=== PATIENT | female | born 1950 | race Caucasian/White ===

== ENCOUNTER 2017-06-23 09:44 | Inpatient (IN) | payer OTHER ==
[~2017-06-23] VITALS: Ht 160 cm; Wt 94.3 kg
[~2017-06-23 09:44] MED LIST: LOPRESSOR25 PO
[2017-06-23 09:53] VITALS: BP 154/94
[2017-06-23 10:07] LABS: HEMATOCRIT 38.8 % (37.0-47.0); HEMOGLOBIN 13.4 gm/dL (12.0-15.0); MCH 32.4 pg (26.0-34.0); MCHC 34.5 g/dL (28.0-37.0); MCV 93.9 fL (80.0-100.0); MPV 7.8 fl. (7.2-11.1); NUCLEATED RBCS 0 /100WBC; PLATELET COUNT* 299 thou/uL (150-400); RBC 4.14 mil/uL (4.20-5.00); RDW-CV 12.6 % (10.5-14.5); WBC 13.4 thou/uL (4.0-11.0)
[2017-06-23 10:09] LABS: URINE BILIRUBIN NEGATIVE (Negative); URINE BLOOD TRACE (Negative); URINE CLARITY CLEAR; URINE COLOR YELLOW; URINE GLUCOSE-RANDOM NEGATIVE (Negative); URINE KETONES TRACE (Negative); URINE LEUKOCYTES-REFLEX NEGATIVE (Negative); URINE NITRITE-REFLEX NEGATIVE (Negative); URINE PROTEIN TRACE (Negative)
[2017-06-23 10:18] LABS: CALCIUM 8.9 mg/dL (8.5-10.1); CREATININE 0.8 mg/dL (0.6-1.3)
--- NOTE | 2017-06-23 10:20 | NUR ---
WILLARD NOTIFIED UPON PT RETURN FROM CT. PT WAS NOT CONNECTED TO MONITOR SHE WAS NOT CONNECTED PRIOR TO GOING TO CT
[2017-06-23 10:22] LABS: ALBUMIN 3.5 g/dL (3.4-5.0); TOTAL BILIRUBIN 1.2 mg/dL (<0.1-1.0); TOTAL PROTEIN 7.7 g/dL (6.4-8.2)
[2017-06-23 10:26] LABS: POTASSIUM 2.9 mmol/L (3.5-5.1)
[2017-06-23] MEDS ORDERED: LISINOPRIL-HCT1 EACH PO (11:58)
[2017-06-23 12:30] LABS: ABSOLUTE LYMPHOCYTES 0.5 thou/uL (0.8-5.3); ABSOLUTE MONOCYTES 0.5 thou/uL (0.0-1.2); ABSOLUTE NEUTROPHILS 12.3 thou/uL (1.6-8.1)
[2017-06-23 12:33] LABS: CLUMPED PLTS OCCASIONAL; PLATELET ESTIMATE ADEQUATE
[2017-06-23 12:34] LABS: MACROCYTES Occasional
[2017-06-23 13:56] VITALS: BP 135/79
[2017-06-23 14:55] VITALS: BP 141/81
[2017-06-23 16:00] VITALS: BP 140/90
--- NOTE | 2017-06-23 17:13 | NUR ---
PHYSICIAN CONTACTED DUE TO PT UNCONTROLLED PAIN EARLIER, PHYSICIAN CALLED AND STATED HE WOULD NOT BE GIVING ANY MORE MEDICATIONS FOR PAIN AT THIS TIME.
--- NOTE | 2017-06-23 18:51 | NUR ---
PT VSS AT THIS TIME. PT C/O HEADACHE, MEDS PROVIDED WITH NO RELIEF. PHYSICIAN NOTIFIED, BUT PHYSICIAN STATED THAT THEY WERE NOT GOING TO CHANGE HER PAIN MANAGEMENT AT THIS TIME. PT PROVIDED WITH ICE FOR PAIN CONTROL, LIGHTS TURNED OFF AND DOOR CLOSED FOR QUIET ENVIRONMENT. PT IV PLACEMENT IN LFA DUE TO PT FLUIDS BEEPING OFF SINCE OTHER ACCESS IS IN HER AC. PT RESTING AT THIS TIME.
[2017-06-23 20:00] VITALS: BP 132/75
[2017-06-23 23:10] LABS: AMP/METHAMP Negative (Negative); BARBITURATES Negative (Negative); BENZODIAZEPINES Negative (Negative); COCAINE Negative (Negative); METHADONE Negative (Negative); OPIATES Negative (Negative); PCP Negative (Negative); THC Negative (Negative)
[2017-06-24] VITALS (10 sets, daily range): BP systolic 90–132; BP diastolic 59–75
[2017-06-24 04:50] LABS: ABSOLUTE LYMPHOCYTES 0.8 thou/uL (0.8-5.3); ABSOLUTE MONOCYTES 1.2 thou/uL (0.0-1.2); ABSOLUTE NEUTROPHILS 13.7 thou/uL (1.6-8.1); BASOPHILS 0.3 %; HEMATOCRIT 35.5 % (37.0-47.0); MCH 32.1 pg (26.0-34.0); MCHC 33.7 g/dL (28.0-37.0); MCV 95.3 fL (80.0-100.0); MONOCYTES 7.6 %; MPV 8.2 fl. (7.2-11.1); NUCLEATED RBCS 0 /100WBC; PLATELET COUNT* 255 thou/uL (150-400); POLYS 87.1 %; RBC 3.72 mil/uL (4.20-5.00); RDW-CV 12.8 % (10.5-14.5); WBC 15.7 thou/uL (4.0-11.0)
[2017-06-24 05:06] LABS: CALCIUM 8.1 mg/dL (8.5-10.1); CREATININE 0.8 mg/dL (0.6-1.3)
[2017-06-24 05:09] LABS: POTASSIUM 4.1 mmol/L (3.5-5.1)
--- NOTE | 2017-06-24 05:14 | NUR ---
ASSESSMENT COMPLETE. PT GIVEN IV PAIN MEDICATION NEEDED. PT REPORTS IV TORADOL MORE EFFECTIVE AND FENTANYL CAUSING HEADACHES. PT GIVEN IV ZOFRAN FOR NAUSEA. PT IS NPO FOR POSSIBLE SURGERY. PT SLEPT PART OF THE NIGHT. PT IS ON ROOM AIR WITH ADEQUATE SATS. PT HAS IV FLUIDS INFUSING. PT UP STANDBY ASSIST TO BATHROOM. FALL RISK, BED ALARM ON. SEE ASSESSMENT AND VITALS FOR OTHER DETAILS. CALL LIGHT WITHIN REACH, WILL CONTINUE PLAN OF CARE
[2017-06-24 07:24] LABS: ALBUMIN 2.7 g/dL (3.4-5.0); DIRECT BILIRUBIN 0.4 mg/dL (<0.1-0.3); TOTAL BILIRUBIN 1.3 mg/dL (<0.1-1.0); TOTAL PROTEIN 5.8 g/dL (6.4-8.2)
--- NOTE | 2017-06-24 12:26 | NUR ---
SW met with pt to complete initial assessment, introduce self, and SW role. Pt alert and oriented. Pt mother bedside. Pt lives at home with her dtr and grandchildren. Pt said taht she plans to find a PCP and SW provided resource/referral list. Pt says that she will have Medicare August 10. Pt does not anticipate any other dc needs at this time. SW to follow.
--- NOTE | 2017-06-24 14:58 | EKG ---
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 : 1950 Requested By: Jovita Moreno Order Number: [id number] Liv MD: Moise Rowe Measurements Intervals [place] Rate: 97 P: 40 MA: 144 QRS: 12 QRSD: 89 T: 47 QT: 389 QTc: 494 Interpretive Statements Sinus rhythm Lw voltage, extremity leads Borderline prolonged QT interval Compared to ECG 09/03/2013 16:36:50 No significant changes Electronically Signed On 06-24-2017 14:58:22 CDT by Moise Rowe [email or web address] <ELECTRONICALLY SIGNED> By: Moise Rowe MD, [facility] 06/24/17 1458 1104 1104 Moise Rowe MD, [facility] /EPI
[2017-06-24 19:25] LABS: HEMATOCRIT 31.7 % (37.0-47.0); HEMOGLOBIN 10.9 gm/dL (12.0-15.0); MCH 32.3 pg (26.0-34.0); MCHC 34.2 g/dL (28.0-37.0); MCV 94.3 fL (80.0-100.0); MPV 7.9 fl. (7.2-11.1); NUCLEATED RBCS 0 /100WBC; PLATELET COUNT* 218 thou/uL (150-400); RBC 3.36 mil/uL (4.20-5.00); RDW-CV 12.7 % (10.5-14.5); WBC 11.2 thou/uL (4.0-11.0)
[2017-06-24 19:35] LABS: APTT 29.7 Seconds (25.0-31.3); INR 1.3; PROTIME 12.3 Seconds (9.20-11.50)
[2017-06-24 19:42] LABS: ABSOLUTE LYMPHOCYTES 0.3 thou/uL (0.8-5.3); ABSOLUTE MONOCYTES 0.3 thou/uL (0.0-1.2); ABSOLUTE NEUTROPHILS 10.5 thou/uL (1.6-8.1); PLATELET ESTIMATE ADEQUATE
--- NOTE | 2017-06-24 20:26 | NUR ---
PT ARRIVED TO ROOM ICU 2 VIA BED FROM PACU AT 1830. SEPSIS PROTOCOL INITIATED. VSS. PT ORIENTED TO ROOM. NO COMPLAINTS OF PAIN. WILL CONTINUE TO MONITOR.
[2017-06-25] VITALS (22 sets, daily range): BP systolic 87–149; BP diastolic 58–89
[2017-06-25 04:17] LABS: HEMOGLOBIN 10.3 gm/dL (12.0-15.0); MCH 32.6 pg (26.0-34.0); MCHC 34.5 g/dL (28.0-37.0); MCV 94.4 fL (80.0-100.0); MPV 7.9 fl. (7.2-11.1); RBC 3.17 mil/uL (4.20-5.00); RDW-CV 12.8 % (10.5-14.5); WBC 9.6 thou/uL (4.0-11.0)
[2017-06-25 04:42] LABS: CALCIUM 7.4 mg/dL (8.5-10.1); CREATININE 0.7 mg/dL (0.6-1.3); MAGNESIUM 1.7 mg/dL (1.8-2.4); POTASSIUM 3.5 mmol/L (3.5-5.1)
--- NOTE | 2017-06-25 05:37 | NUR ---
DR DAWN INFORMED OF TROPONIN OF 20.52, ORDER RECEIVED TO OBTAIN EKG THIS AM AND WILL START LOVENOX AND ASA THIS EVENING.
--- NOTE | 2017-06-25 06:19 | NUR ---
VSS, MAP HAS REMAINED >65. PT HAS DENIED CHEST PAIN AND SOA. INTERMITTENT ABDOMINAL PAIN TREATED WITH PRN PAIN MEDS ORDERED WITH RELIEF OF SYMPTOMS. PT HAS BEEN TURNED Q2HR THROUGHOUT THE SHIFT, REFUSED 0600 TURN AND EDUCATION PROVIDED. CALL LIGHT WITHIN REACH.
--- NOTE | 2017-06-25 06:31 | NUR ---
EKG OBTAINED, NO ACUTE CHANGES.
--- NOTE | 2017-06-25 10:00 | NUR ---
PT HAD JUAN CARLOS TUBE PLACED YESTERDAY, TRANSFERRED TO ICU WITH CARDIAC ISSUES. PT TO HAVE CARDIAC CATH TODAY. CASE MGT TO CONTINUE TO FOLLOW.
--- NOTE | 2017-06-25 11:36 | EKG ---
[place] [address] ELECTROCARDIOGRAM REPORT Name: INEZ SMITH Room: [address] ADM IN .R.#: [id number] Admission: 06/23/17 Attend Phys: Jignesh Jaramillo MD Discharge: Date of : 54 Report #: [id number] THIS REPORT FOR: //name// [facility] Test Date: 2017-06-24 Test Time: 17:03:39 Pat Name: INEZ SMITH Department: Room: [address] Gender: F Recruitment Assistant: KENDRA : 1950 Requested By: Diallo Rollins Order Number: [id number] Liv MD: Nick Starr Measurements Intervals [place] Rate: 127 P: 24 GA: 126 QRS: 47 QRSD: 95 T: 228 QT: 303 QTc: 441 Interpretive Statements Sinus tachycardia Atrial premature complex Borderline low voltage, extremity leads Borderline repolarization abnormality Compared to ECG 06/24/2017 11:04:07 Atrial premature complex(es) now present Sinus rhythm no longer present Electronically Signed On 06-25-2017 11:36:27 CDT by Nick Starr [email or web address] <ELECTRONICALLY SIGNED> By: Nick Starr MD, [facility] 06/25/17 1136 1703 1703 Nick Starr MD, [facility] /EPI
--- NOTE | 2017-06-25 11:39 | EKG ---
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 Practice Manager: Maurilio EVANS RN : 1950 Requested By: Dharmesh Watt Order Number: [id number] Reading MD: Nick Starr Measurements Intervals [place] Rate: 94 P: 38 DE: 162 QRS: 40 QRSD: 89 T: 9 QT: 430 QTc: 538 Interpretive Statements Sinus rhythm poor r wave progression Low voltage, extremity and precordial leads Prolonged QT interval Baseline wander in lead(s) V4 Compared to ECG 06/24/2017 11:04:07 rate has slowed Electronically Signed On 06-25-2017 11:39:09 CDT by Nick Starr [email or web address] <ELECTRONICALLY SIGNED> By: Nick Starr MD, [facility] 06/25/17 1139 0601 0601 Nick Starr MD, [facility] /EPI
--- NOTE | 2017-06-25 17:18 | 2DMMODE ---
[place] [address] 2 D/M-MODE ECHOCARDIOGRAM Name: INEZ SMITH Room: [address] IN [facility]#: [id number] Admission: 06/23/17 Attend Phys: Jignesh Jaramillo, Discharge: Date of : 54 Date of Service: 06/25/17 1718 Report #: [id number] THIS REPORT FOR: //name// ADDENDUM APPROVED REPORT Study performed: 06/25/2017 09:51:54 EXAM: Comprehensive 2D, Doppler, and color-flow Echocardiogram Patient Location: In-Patient Room #: [facility] Status: routine BSA: 1.85 HR: 88 bpm BP: 104/71 mmHg Rhythm: NSR Other Information Study Quality: Good Indications Arrhythmia 2D Dimensions IVSd: 10.69 (7-11mm) LVOT Diam: 17.61 (18-24mm) LVDd: 51.91 mm PWd: 8.57 (7-11mm) Ascending Ao: 33.96 (22-36mm) LVDs: 39.29 (25-40mm) Aortic Root: 29.84 mm Volumes Left Atrial Volume (Systole) LA ESV Index: 39.50 mL/m2 Aortic Valve AoV Peak Shalom.: 1.35 m/s AO Peak Gr.: 7.28 mmHg LVOT Max P.86 mmHg AO Mean Gr.: 3.96 mmHg LVOT Mean P.45 mmHg LVOT Max V: 1.10 m/s AO V2 VTI: 21.73 cm LVOT Mean V: 0.72 m/s DANNIE (VTI): 2.05 cm2 LVOT V1 VTI: 18.27 cm Mitral Valve E/A Ratio: 1.44 MV Decel. Time: 134.68 ms MV E Max Shalom.: 1.19 m/[place] [address] 2 D/M-MODE ECHOCARDIOGRAM Name: INEZ SMITH Room: [address] IN .R.#: [id number] Admission: 06/23/17 Attend Phys: Jignesh Jaramillo, Discharge: Date of : 54 Date of Service: 06/25/17 1718 Report #: [id number] MV PHT: 39.06 ms MVA (PHT): 5.63 cm2 TDI E/Lateral E': 10.82 E/Medial E': 9.15 Medial E' Shalom.: 0.13 m/s Lateral E' Shalom.: 0.11 m/s Pulmonary Valve PV Peak Shalom.: 0.77 m/s PV Peak Gr.: 2.39 mmHg Tricuspid Valve TR Peak Gr.: 28.31 mmHg RVSP: 33.00 mmHg Left Ventricle The left ventricle is normal size. severe hypokinesis noted of the distal anteroseptal wall and apex There is normal left ventricular wall thickness. Left ventricular systolic function is moderately decreased. LVEF is 4 LVEF is 35-40%. LVEF is 35-40%. Right Ventricle The right ventricle is normal size. The right ventricular systolic function is normal. Atria Left atrium is mildly dilated. The right atrium size is normal. Aortic Valve The aortic valve is normal in structure. No aortic regurgitation is present. There is no aortic valvular stenosis. Mitral Valve The mitral valve is normal in structure. Mild mitral regurgitation. No evidence of mitral valve stenosis. Tricuspid Valve The tricuspid valve is normal in structure. Mild tricuspid regurgitation. The RVSP is 30-35 mmHg. Pulmonic Valve Pulmonic valve is not well visualized. Mild pulmonic regurgitation. Great Vessels The aortic root is normal in size. [place] [address] 2 D/M-MODE ECHOCARDIOGRAM Name: INEZ SMITH Room: [address] IN [facility]#: [id number] Admission: 06/23/17 Attend Phys: Jignesh Jaramillo, Discharge: Date of : 54 Date of Service: 06/25/17 1718 Report #: [id number] visualized. Pericardium There is no pericardial effusion. <Conclusion> LVEF is 35-40%. severe hypokinesis noted of the distal anteroseptal wall and apex Left atrium is mildly dilated. Mild mitral regurgitation. Mild tricuspid regurgitation. The RVSP is 30-35 mmHg. <ELECTRONICALLY SIGNED> By: Nick Starr MD, [facility] 06/25/171717 17 17 Nick Starr MD, [facility] /INF
--- NOTE | 2017-06-25 17:51 | NUR ---
PT ARRIVED BACK FROM MICROBIOLOGY LAB ANALYST AT 1640. ASSESSMENT CHARTED. VSS. NO SIGNS OF BLEEDING OR HEMATOMA AT RIGHT RADIAL SITE. PT PROCEEDING WITH CAUTION WITH WATER AND HAS HAD AN ORDER FOR CLEAR LIQUIDS PUT IN PER SURGERY. PT'S PAIN CONTROLLED WELL WITH IV MEDICATION.
--- NOTE | 2017-06-25 18:22 | EKG ---
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: BJORN : 1950 Requested By: Nick Starr Order Number: [id number] Reading MD: Nick Starr Measurements Intervals [place] Rate: 97 P: 49 [place]: 168 QRS: 54 QRSD: 90 T: -16 QT: 419 QTc: 533 Interpretive Statements Sinus rhythm low voltage Anteroseptal infarct, age indeterminate Prolonged QT interval Compared to ECG 06/25/2017 06:01:01 Myocardial infarct finding now present Electronically Signed On 06-25-2017 18:22:18 CDT by Nick Starr [email or web address] <ELECTRONICALLY SIGNED> By: Nick Starr MD, [facility] 06/25/17 1822 1648 1648 Nick Starr MD, [facility] /EPI
--- NOTE | 2017-06-25 20:01 | CARD ---
[address] [address] CARDIAC CATH REPORT Name: INEZ SMITH [place] Room: [address] IN [facility]#: [id number] Admission: 06/23/17 Attend Phys: Jignesh Jaramillo MD Discharge: Date of : 54 Report #: [id number] THIS REPORT FOR: //name// APPROVED REPORT Study performed: 06/25/2017 14:20:54 Patient Details Patient Status: In-Patient Room #: The patient is a 66 year-old female Event Personnel Nick Starr Meat Trimmer, Juliann Card RN RN, Taj Major Monitor, Aye Roach RTR Scrub Procedures Performed cath pci Indication Abnormal ECG, Non-STEMI Risk Factors Arterial Hypertension Admission/Lab Medications/Medications given during procedure Platelet Aff. Inhib., Heparin Unfract. Procedure Narrative The patient was brought electively to the Cardiac Catheterization Laboratory and was prepped and draped in a sterile manner. The right wrist was infiltrated with 1% Lidocaine subcutaneous anesthesia. A Slender Glidesheath sheath was inserted into the right radial artery. Coronary angiography was performed using coronary diagnostic catheters. The right coronary system was accessed and visualized with a JR4 5fr catheter. The left coronary system was accessed and visualized with a JL 3.5 5fr catheter. The left ventricle was accessed and visualized with a PC: Angled Pig 5fr catheter. Left ventricular/Aortic Valve gradient assessed via catheter pullback. Left ventriculogram was performed in DENNY projection. Closure device was deployed with a 6 Fr Vasc-Band Reg 24cm. The patient tolerated the procedure well and there were no complications associated with the procedure. There was no hematoma. Intraoperative Conscious Sedation Sedation start time: 1507 Case end Time: [place] [address] CARDIAC CATH REPORT Name: SARAHINEZ L Room: [address] IN [facility]#: [id number] Admission: 06/23/17 Attend Phys: Jignesh Jaramillo MD Discharge: Date of : 54 Report #: [id number] Versed 2 mg Fluoro Time: 6.9 minutes Dose: DAP [id number] cGycm2 1643 mGy Contrast Type and Amount: Omnipaque 145 ml Coronary Angiography The patient's coronary anatomy is right dominant. [place] Artery Percent Stenosis The vessels were moderately calcified. Diagnostic Cath Left Main 0% stenosis LAD 80% proximal and 60% after the first diagonal. There was a 60% distal stenosis Circumflex 50% mid stenosis Right Coronary proximally occluded with slow antegrade flow, and collateral flow from the left coronary artery. Ramus 0% stenosis Left Ventriculography The left ventricle is mildly dilated in size with abnormal contactility contractility. The left ventricular ejection fraction is estimated to be 35-40%. Left ventricular wall motion abnormalities are present. There is 1+ mitral insufficiency. Severe moderate hypokinesis noted of the inferior wall and apex. Hemodynamics The aortic pressure is 126/85 mmHg with a mean of 104 mmHg. The left ventricular pressure is 142/4 mmHg with a mean of mmHg. The left ventricular end diastolic pressure is 20 mmHg. There was no gradient across the aortic valve upon pullback. Pullback from the left ventricle to the aorta revealed no gradient across the aortic valve. PCI Technique Lesion Anticoagulation was achieved with Heparin. bolus of iv aggrastat given Patient was preloaded with Plavix 600 mg. Percutaneous coronary intervention was performed on the mid left anterior descending artery segment. The lesion stenosis prior to intervention was 80% with JANIE 3 flow. A 6FR XB LAD 3.0 100CM Guide Catheter was used to engage the lm ostium. A IG: BMW 190cm Interventional Guidewire [place] [address] CARDIAC CATH REPORT Name: INEZ SMITH Room: [address]#: [id number] Admission: 06/23/17 Attend Phys: Jignesh Jaramillo MD Discharge: Date of : 54 Report #: [id number] BALLOON DILATION A Balloon catheter Trek RX 2.5 X 12 was inserted and inflated up to 12.00atm for 12seconds. Repeat angiography revealed the following post-dilatation results: 40% stenoisis. Additional Inflation: 14.00atm for 11seconds. STENT DEPLOYMENT A bare metal stent Vision RX 2.75 X 18 was inserted and inflated up to 7.00atm for 24seconds. Repeat angiography revealed the following post-stent deployment results: 30% stenosis. Additional Inflation: 12.00atm for 19seconds. Additional Inflation: 13.00atm for 12seconds. POST STENT DEPLOYMENT BALLOON DILATION A Balloon catheter NC Trek RX 3.0 X 12 was inserted and inflated up to 18.00atm for 33seconds. Repeat angiography revealed the following post-dilatation results: 0% stent stenosis, but a step down from the proximal lad. Additional Inflation: 20.00atm for 15seconds. Final angiography reveals 0 % stenosis with JANIE 3 flow. Conclusion 1. Chronic occlusion of the rca, and 80% stenosis of the mid lad 2. successful placement of a single bare metal stent in the mid lad 3. moderate LV dysfunction Recommendations Cardiac Rehabilitation Referral Aggressive Medical Therapy Medications Administered Ticagrelor <ELECTRONICALLY SIGNED> By: Nick Starr MD, [facility] 06/25/172000 00 00Dadanny Starr MD, FAC /INF
[2017-06-26 02:00] VITALS: BP 89/60
[2017-06-26 03:04] LABS: ABSOLUTE EOSINOPHILS 0.1 thou/uL (0.0-0.7); ABSOLUTE LYMPHOCYTES 0.9 thou/uL (0.8-5.3); ABSOLUTE MONOCYTES 0.5 thou/uL (0.0-1.2); ABSOLUTE NEUTROPHILS 6.3 thou/uL (1.6-8.1); BASOPHILS 0.3 %; EOSINOPHILS 0.7 %; HEMOGLOBIN 10.6 gm/dL (12.0-15.0); LYMPHOCYTES 11.1 %; MCH 32.6 pg (26.0-34.0); MCHC 34.1 g/dL (28.0-37.0); MCV 95.7 fL (80.0-100.0); MONOCYTES 6.9 %; MPV 7.9 fl. (7.2-11.1); NUCLEATED RBCS 0 /100WBC; PLATELET COUNT* 227 thou/uL (150-400); RBC 3.24 mil/uL (4.20-5.00); RDW-CV 13.2 % (10.5-14.5); WBC 7.7 thou/uL (4.0-11.0)
[2017-06-26 03:30] LABS: ALBUMIN 1.8 g/dL (3.4-5.0); ALKALINE PHOSPHATASE 50 U/L (46-116); ANION GAP 13 mmol/L (7-16); BUN 17 mg/dL (7-18); CALCIUM 7.3 mg/dL (8.5-10.1); CHLORIDE 107 mmol/L (98-107); CHOLESTEROL 117 mg/dL (<200); CO2 20 mmol/L (21-32); CREATININE 0.7 mg/dL (0.6-1.3); GLUCOSE 120 mg/dL (70-99); HDL CHOLESTEROL 7 mg/dL (>40); LDL CHOLESTEROL 62 mg/dL (<100); POTASSIUM 3.2 mmol/L (3.5-5.1); SERUM ASSESSMENT Clear; SGOT 57 U/L (15-37); SGPT 26 U/L (30-65); SODIUM 140 mmol/L (136-145); TC:HDL 16.7 Ratio (Not establshd); TOTAL BILIRUBIN 0.4 mg/dL (<0.1-1.0); TOTAL PROTEIN 5.6 g/dL (6.4-8.2); TRIGLYCERIDE 240 mg/dL (<150); VLDL 48 mg/dL (<40)
[2017-06-26 03:32] LABS: TROPONIN-I LEVEL 14.43 ng/mL (<0.06)
[2017-06-26 04:00] VITALS: BP 112/73
[2017-06-26 06:00] VITALS: BP 127/79
--- NOTE | 2017-06-26 07:26 | NUR ---
HR CHANGED FROM ST TO AFIB RVR; DR DE LEON NOTIFIED, PT PLACED ON AMIO DRIP. K REPLACED PO X2 DOSES FOR LEVEL 3.2. OLENA DRAIN PATENT, NO OUTPUT FROM FELIPE DRAIN. INCISIONS INTACT. PT REMAINS A+O*4, VARGAS PATENT, ADEQUATE OUTPUT. IVF @ 125, ABX AROUND THE CLOCK. CONT TO MONITOR
[2017-06-26 07:42] VITALS: BP 121/73
--- NOTE | 2017-06-26 09:37 | NUR ---
RECEIVED REPORT FROM STEPHANIE HOOVER. ASSESSMENT CHARTED. AFEBRILE. SAM TAKEN OUT THIS AM. PT NOW TELE STATUS. WILL CONTINUE TO MONITOR.
--- NOTE | 2017-06-26 13:40 | EKG ---
[place] [address] ELECTROCARDIOGRAM REPORT Name: INEZ SMITH Room: [address] ADM IN .R.#: [id number] Admission: 06/23/17 Attend Phys: Jignesh Jaramillo MD Discharge: Date of : 54 Report #: [id number] THIS REPORT FOR: //name// [facility] Test Date: 2017-06-25 Test Time: 22:49:56 Pat Name: INEZ SMITH Department: Room: [address] Gender: F Repair Service Dispatcher: [facility] : 1950 Requested By: Jignesh Jaramillo Order Number: [id number] Reading MD: Nick Starr Measurements Intervals [place] Rate: 130 P: AK: QRS: 74 QRSD: 93 T: -67 QT: 303 QTc: 446 Interpretive Statements Atrial fibrillation Low voltage, precordial leads Anteroseptal infarct, old Minimal ST depression Compared to ECG 06/25/2017 16:48:15 Sinus rhythm no longer present Prolonged QT interval no longer present Myocardial infarct finding still present Electronically Signed On 06-26-2017 13:40:36 CDT by Nick Starr [email or web address] <ELECTRONICALLY SIGNED> By: Nick Starr MD, [facility] 06/26/17 1340 2249 2249 Nick Starr MD, [facility] /EPI
--- NOTE | 2017-06-26 13:46 | EKG ---
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 : 1950 Requested By: Nick Starr Order Number: [id number] Liv MD: Nick Starr Measurements Intervals [place] Rate: 92 P: 41 [place]: 158 QRS: 37 QRSD: 104 T: -15 QT: 408 QTc: 505 Interpretive Statements Sinus rhythm low voltage Anterior infarct, age indeterminate Prolonged QT interval Compared to ECG 06/25/2017 16:48:15 sinus rhythm noted Electronically Signed On 06-26-2017 13:46:09 CDT by Nick Starr [email or web address] <ELECTRONICALLY SIGNED> By: Nick Starr MD, [facility] 06/26/17 1346 0736 0736 Nick Starr MD, [facility] /EPI
[2017-06-26 14:35] VITALS: BP 121/73
[2017-06-26 16:24] VITALS: BP 118/85
--- NOTE | 2017-06-26 20:15 | NUR ---
PT TRANSFERED FROM ICU PT IS ALERT AND ORIENTED X 4 PT IS UP WTIH SBA PT HAS FALLEN RECENTLY PT IS A FALL RISK BED ALARM IS ON, PT C/O PAIN GAVE PAIN MEDS WHICH HELPED PT, PT DENEIS SOA ON RA, PT GIVEN ANTIBIOTICS, PT IS SR ON THE MONITOR, PT HAS FLUIDS RUNNING, WILL CONTINUE TO MONITOR
[2017-06-27] VITALS (7 sets, daily range): BP systolic 120–159; BP diastolic 73–104
[2017-06-27 04:50] LABS: ABSOLUTE EOSINOPHILS 0.1 thou/uL (0.0-0.7); ABSOLUTE LYMPHOCYTES 0.8 thou/uL (0.8-5.3); ABSOLUTE MONOCYTES 0.4 thou/uL (0.0-1.2); ABSOLUTE NEUTROPHILS 4.8 thou/uL (1.6-8.1); BASOPHILS 0.4 %; EOSINOPHILS 1.6 %; HEMATOCRIT 28.5 % (37.0-47.0); HEMOGLOBIN 9.9 gm/dL (12.0-15.0); LYMPHOCYTES 13.4 %; MCHC 34.8 g/dL (28.0-37.0); MCV 94.6 fL (80.0-100.0); MPV 7.7 fl. (7.2-11.1); NUCLEATED RBCS 0 /100WBC; PLATELET COUNT* 235 thou/uL (150-400); POLYS 77.6 %; RBC 3.01 mil/uL (4.20-5.00); WBC 6.2 thou/uL (4.0-11.0)
[2017-06-27 05:06] LABS: CALCIUM 7.8 mg/dL (8.5-10.1); CREATININE 0.8 mg/dL (0.6-1.3); POTASSIUM 3.6 mmol/L (3.5-5.1)
--- NOTE | 2017-06-27 05:59 | NUR ---
ASSUMED PT CARE AT 19;15 REPORT RECEIVED FORM NURSE PT IS ALERT AWAKE ORIENTED X4 VITAL SIGNS WITHIN NORMAL LIMIT. IV LINIE IN R HAND PATENT. IV IN L HAND BLEW OUT . IV FLUID INFUSING. ANTIBIOTICS ADMINSTERED. SINUS RYTHM ON THE MONITOR. PT COMPLAIN OF PAIN LEVEL OF 5 IN RIGHT UPPER ABD. NARCO ADMINISTERED ORDERED. 2 HOURS AFTER, PT IS SLEEPING INBED. GOT UP X2 TO USE THE BEDSIDE COMMODE AND URINATES GOOD AMOUNT OF URIME POST CATHETER REMOVAL. RIGHT UPPER QUADRANT FELIPE DRAINAGE IS EMPTY. NO OUTPUT. BILLIAR OUTPUT FROM OTHER DRAINAGE.
--- NOTE | 2017-06-27 15:14 | NUR ---
CONTINUE TO FOLLOW, ATTEMPTED TO MEET WITH PT SEVERAL TIMES TODAY BUT HAVING ISSUES WITH AFIB. MET WITH DTR/FERMIN IN MEEKS. UPDATED HER ON PLAN FOR DC WITH JUAN CARLOS TUBE AND THAT CM ASKED THAT NURSING INSTRUCT PT AND DTR ON CARE OF. PT IS UNINSURED, PER DTR, WILL HAVE MEDICARE 08/10. EXPLAINED THAT CM IS NOT ABLE TO SET UP ANY HH OR CARE UNTIL MEDICARE IS ACTIVE UNLESS PT WANTS TO PAY OUT OF POCKET. SHE STATED SHE UNDERSTOOD. PLAN WILL BE FOR PT TO RETURN HOME WITH DTR. FERMIN STATED PT CAN BORROW A WALKER FROM HER AUNT. WILL FOLLOW
--- NOTE | 2017-06-27 16:20 | NUR ---
ASSUMED PT CARE AT 0700 PT IS ALERT AND ORIENTED X 4 PT C/O PAIN GAVE PAIN MEDS REASSESSED PT STATES PAIN MEDS HELP, PT IS UP WITH SBA TO COMMODE PT IS A FALL RISK BED ALARM IS ON, PT IS SR ON THE MONITOR, AROUND 1400 PT HEART RATE INCREASED PT BECAME TACHY OBTAINED EKG CALLED CARDIOLOGY WITH RESULTS OBTAINED ORDER FOR AMIODARONE BOLUS WHICH THIS NURSE GAVE PT HEART RATE DECREASED PT WAS ASYMPTOMATIC DURING EPISODE, SURGERY ORDERED TO STOP FLUIDS, PT TOLERATED FULL LIQUIDS WILL ADVANCE TOLERATED, WILL CONTINUE TO MONITOR
[2017-06-28] VITALS (7 sets, daily range): BP systolic 121–145; BP diastolic 73–99
--- NOTE | 2017-06-28 02:00 | NUR ---
ASSUMED CARE OF PATIENT AT 1900 THE PATIENT REMAINS IN AFIB ON THE MONITOR REPORTEDLY FLUCTUATES BETWEEN SR,ST ET AFIB BY OFF-GOING RN O2 SAT MAINTAINED ON RA CONTINUES TO BE UP WITH STANDBY MODERATE ASSIST OF 1 TO THE BSC SX MANAGEMENT CONTINUE FOR PAIN WITHOUT S/SX OF ACUTE DISTRESS AT SHIFT START DRAINS X 2 RUQ REMAIN INTACT WITHOUT NOTED CONCERNS SAFETY INTERVENTIONS CONTINUE BED LOWERED WHEELS LOCKED CALL LIGHT IN REACH SIDE RAILS UP X 2 WILL CONTINUE TO MONITOR
--- NOTE | 2017-06-28 07:11 | NUR ---
PATIENT SEEN BY SURGERY THIS AM WITH NO NEW ORDERS OBTAINED THE PATIENT RESTED WELL DURING NIGHT OCCASIONAL TACHY WORSENING WITH MOVEMENT HOWEVER RESOLVING PRESENTLY 85 HR DRAINS REMAIN INTACT DENIES PAIN WHEN QUESTIONED NO PRN INTERVENTIONS UTILIZED THIS SHIFT AM LABS UNABLE TO BE OBTAINED DUE TO POOR ACCESS LIMB ALERT STILL PRESENT ON RIGHT WRIST REPORT TO BE GIVEN TO ONCOMING RN
[2017-06-28 09:23] LABS: HEMATOCRIT 34.4 % (37.0-47.0); MCH 32.7 pg (26.0-34.0); MCHC 34.9 g/dL (28.0-37.0); MCV 93.7 fL (80.0-100.0); MPV 7.9 fl. (7.2-11.1); RBC 3.67 mil/uL (4.20-5.00); RDW-CV 12.9 % (10.5-14.5); WBC 5.2 thou/uL (4.0-11.0)
[2017-06-28 09:24] LABS: CALCIUM 8.2 mg/dL (8.5-10.1); CREATININE 0.7 mg/dL (0.6-1.3); MAGNESIUM 1.8 mg/dL (1.8-2.4); PHOSPHORUS* 3.2 mg/dL (2.5-4.9); POTASSIUM 3.5 mmol/L (3.5-5.1)
--- NOTE | 2017-06-28 11:27 | EKG ---
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 : 1950 Requested By: Jignesh Jaramillo Order Number: [id number] Reading MD: Nick Starr Measurements Intervals [place] Rate: 140 P: MA: QRS: 96 QRSD: 93 T: -62 QT: 290 QTc: 443 Interpretive Statements Atrial fibrillation Right axis deviation Low voltage, precordial leads Anteroseptal infarct, old Borderline T abnormalities, inferior leads Compared to ECG 06/26/2017 07:36:03 Right-axis deviation now present Sinus rhythm no longer present Prolonged QT interval no longer present Myocardial infarct finding still present Electronically Signed On 06-28-2017 11:27:14 CDT by Nick Starr [email or web address] <ELECTRONICALLY SIGNED> By: Nick Starr MD, [facility] 06/28/17 1127 1319 1319 Nick Starr MD, [facility] /EPI
--- NOTE | 2017-06-28 17:57 | NUR ---
PT C/O PAIN IN FEET AND SWELLING. PT GIVEN PAIN MED PER ORDERS AND FEET ELEVATED WITH RELIEF REPORTED ON REASSESSMENT. PT OOB MOST OF DAY, WALKS TO BATHROOM WITH WALKER, SBA, STEADY GAIT. PT TOLERATES DIET WITHOUT C/O. DRAINS IN PLACE. SEROSAGUINOUS DRAINAGE IN FELIPE DRAIN, GREEN DRAINAGE BILIARY DRAIN. PT ABLE TO MAKE NEEDS KNOWN, CALL LIGHT IN REACH
[2017-06-29] VITALS: BP 123/78
[2017-06-29 04:00] VITALS: BP 126/73
--- NOTE | 2017-06-29 04:48 | NUR ---
ASSUMED CARE OF PATIENT AT 1900 THE PATIENT REMAINS SR ON THE MONITOR O2 SAT MAINTAINED ON CONTINUES TO BE UP WITH ASSIST OF 1 ET WALKER TO BSC THE ROUTINE REGIMEN CONTINUES TO BE EFFECTIVE FOR SX MANAGEMENT PRN PAIN MED X 1 THIS SHIFT SAFETY INTERVENTIONS CONTINUE BED LOWERED WHEELS LOCKED CALL LIGHT IN REACH SIDE RAILS UP REPORT TO BE GIVEN TO ONCBENNIE BROWN
[2017-06-29 05:39] LABS: CALCIUM 7.9 mg/dL (8.5-10.1); CREATININE 0.7 mg/dL (0.6-1.3); MAGNESIUM 1.8 mg/dL (1.8-2.4); POTASSIUM 3.6 mmol/L (3.5-5.1)
[2017-06-29 07:00] VITALS: BP 133/91
--- NOTE | 2017-06-29 07:04 | NUR ---
ORDER RECEIVED MAY LEAVE IV OUT POTENTIAL DISCHARGE, POOR ACCESS, ORDERS TO CHANGE FLAGYL TO PO OBTAINED ALTERATION TO BEGIN THIS AM REPORT TO BE GIVEN TO ONCOMING RN
[2017-06-29 09:58] VITALS: BP 133/91
[2017-06-29] MEDS ORDERED: PACERONE 200 M200 M1 PO (11:03)
[2017-06-29] MEDS ORDERED: ASPIR 8181 MG PO (11:03)
[2017-06-29] MEDS ORDERED: PLAVIX 75 MG TA75 M1 PO (11:03)
[2017-06-29] MEDS ORDERED: FLAGYL500 MG PO (11:03)
[2017-06-29] MEDS ORDERED: CIPRO500 M1 PO (11:03)
[2017-06-29] MEDS ORDERED: LANOXIN 0.25M0.25 M1 PO (11:03)
[2017-06-29] MEDS ORDERED: LIPITOR40 MG PO (11:03)
[2017-06-29] MEDS ORDERED: NITROGLYCERIN0.4 MG SUBLING (13:57)
[2017-06-29] MEDS ORDERED: HYDROCODONE-AP1 EAC6 PO (13:59)
--- NOTE | 2017-06-29 14:23 | NUR ---
VSS, ASSUMED CARE IN THE AM, ASSESSMENT PERFORMED AND CHARTED, FALL PRECAUTIONS IN PLACE AND CALL LIGHT IN REACH, PT IS A&O4 AND UP WITH ONE AND WALKER, PT IS ON RA AND STATES PAIN IN HER ABDOMINE, PT IS TRACING SR ON THE MONITOR AND IS ON RA, AT THIS TIME I HAVE RECIEVED D/C INSTRUCTIUONS FILLED OUT D/C MEDICATIONS AND PROVITED SCRIPTS AND MEDICATIONS INFO SHEETS, PT IV AND TELE MONITOR TAKEN OUT AND PT WAS EDUCATED ON HOW TO USE JUAN CARLOS TUBE AND FELIPE DRAIN, PT DENIES ANY QUESTIONS OR CONCERNS AT TIME OF D/C. HOURLY ROUNDS COMPLETED AND WILL FOLLOW WITH PLAN OF CARE.
--- NOTE | 2017-06-30 08:44 | CON ---
[address] [address] CONSULTATION Name: INEZ SMITH Room: [address] IN .R#: [id number] Admission: 06/23/17 Attend Phys: Jignesh Jaramillo MD Discharge: 06/29/17 Date of : 54 Report #: [id number] THIS REPORT FOR: //name// CC: Jignesh Jaramillo [facility] physician/PCP DATE OF SERVICE: 06/24/2017 INDICATION: Ventricular tachycardia. HISTORY OF PRESENT ILLNESS: The patient is a very pleasant 66-year-old white female who was admitted through the Emergency Room yesterday with abdominal pain. She was found to have acute cholecystitis. She was in the operating room today undergoing laparoscopic procedure. She was found to have a rather infected gallbladder, for which she had a percutaneous tube placed. In the process of reversing anesthesia, she had an episode described as ventricular tachycardia and supraventricular tachycardia. This has settled down. The patient has orders for an amiodarone bolus and drip pending. At this time, she remains in sinus tachycardia, but is hemodynamically stable. She is alert. She denies any chest pain. She is not having shortness of breath. She states she had been having abdominal pain for approximately a week prior to presenting to the hospital. Cardiac risk factors are significant only for hypertension. She is a lifelong nonsmoker. Lipid status is unknown. There is no family history of coronary disease. She is not diabetic. PAST MEDICAL HISTORY: 1. Hypertension. 2. Nephrolithiasis. 3. History of migraines. PAST SURGICAL HISTORY: 1. Gastric bypass. 2. Left breast biopsy. 3. Left hip replacement. 4. Knee replacement. 5. Bladder lift. FAMILY HISTORY: Noncontributory. SOCIAL HISTORY: The patient is a lifelong nonsmoker. She does not drink alcohol. ALLERGIES: CEPHALEXIN [place] [address] CONSULTATION Name: INEZ SMITH Sabine Room: [address]#: [id number] Admission: 06/23/17 Attend Phys: Jignesh Jaramillo MD Discharge: 06/29/17 Date of : 54 Report #: [id number] CURRENT MEDICATIONS: Metoprolol tartrate 25 mg daily and lisinopril/hydrochlorothiazide 10/12.5 mg 1 tablet p.o. daily. PHYSICAL EXAMINATION: VITAL SIGNS: Blood pressure 113/86, pulse 125 and regular. Telemetry shows sinus tachycardia. GENERAL: Morbidly obese white female, who is not in distress. HEENT: Head is normocephalic, atraumatic. Pupils equally round, reactive to light. Extraocular muscles intact. NECK: Shows a thick neck without obvious jugular venous distention. CHEST: Clear anteriorly. CARDIOVASCULAR: Reveals a tachycardic rhythm that is regular without gallop or murmur. ABDOMEN: Reveals a protuberant abdomen that appears soft. EXTREMITIES: Show no edema. Peripheral pulses are 2+ and easily palpable. SKIN: Warm and dry. LABORATORY DATA: Preoperative EKG shows sinus rhythm without acute ST or T-wave abnormalities or pathologic Q waves. IMPRESSION AND RECOMMENDATIONS: 1. Postop ventricular tachycardia. I agree with starting an amiodarone drip after amiodarone bolus. We will follow in the ICU on telemetry. Obtain 2-dimensional echocardiogram to evaluate underlying cardiac structure and function. We will get serial enzymes to rule out myocardial infarction. 2. Hypertension, presently stable. We will follow in the ICU and adjust medications as needed. 3. Acute cholecystitis. The patient is status post percutaneous tube placement for drainage. Further treatment per surgery. <ELECTRONICALLY SIGNED> By: Moise Rowe MD, FACC 06/30/17 0844 1816 0010Micasim Rowe MD, FACC /nt
--- NOTE | 2017-07-04 22:20 | OP ---
[address] [address] OPERATIVE REPORT Name: SARAHINEZ Sabine Room: [address]R#: [id number] Admission: 06/23/17 Attend Phys: Jignesh Jaramillo MD Discharge: 06/29/17 Date of : 54 Report #: [id number] THIS REPORT FOR: //name// CC: Jignesh Jaramillo [facility] physician/PCP DICTATED BY: Brooke Reis DO DATE OF SERVICE: 06/24/2017 PREOPERATIVE DIAGNOSES: Acute cholecystitis and cholelithiasis. POSTOPERATIVE DIAGNOSES: Acute cholecystitis and cholelithiasis. SURGEON: Brooke Reis DO, PGY5. SUPERVISING SURGEON: Dr. Jovita Moreno. BIOMETRICS TECHNICIAN: Baldev Mcpherson DO, PGY1. PROCEDURE: Laparoscopic cholecystostomy tube placement. ANESTHESIA: General endotracheal. ESTIMATED BLOOD LOSS: 25 mL. SPECIMENS: None. COMPLICATIONS: Several runs of V-tach postoperatively during emergence. OPERATIVE DETAILS: After obtaining proper informed consent, the patient was brought to the operating room and laid supine on the operating table. She was given preoperative antibiotics and sedated and intubated under the benefit of general anesthesia. Abdomen was prepped and draped in the usual sterile fashion and timeout was performed. A supraumbilical incision was made and dissection of subcutaneous tissue was carried out with blunt dissection to the level of the fascia. A nicking incision was made in the fascia and this was grasped with two Kemi clamps and elevated. Fascial incision was extended superiorly and inferiorly and peritoneum was entered bluntly with the use of the finger. Peritoneum was swept and found to be free of adhesions. An 0 Vicryl retention suture was placed on either side of the fascia. Ab trocar was placed in the abdomen and abdomen was insufflated. The patient was placed slightly head up and rolled to the left. A 12 mm trocar was then placed in the subxiphoid position followed by two 5 mm trocars in the right upper quadrant. There were dense omental adhesions up around the gallbladder and gallbladder was significantly distended. Aspiration needle was used [place] [address] OPERATIVE REPORT Name: INEZ SMITH Room: [address]#: [id number] Admission: 06/23/17 Attend Phys: Jignesh Jaramillo MD Discharge: 06/29/17 Date of : 54 Report #: [id number] gallbladder with purulent appearing bile. We then attempted to bluntly dissect the dense adhesions around the gallbladder; however, felt this was unsafe to proceed due to adherent duodenum to the gallbladder. Given the patient's septic and unstable state, a decision was made to place a laparoscopic cholecystostomy tube. A 12-Fijian cholecystostomy tube was placed and secured. A 19-Fijian FELIPE drain was then brought through the right upper quadrant trocar site and secured into place with 2-0 nylon. The subxiphoid trocar site was closed transfascially with 0 Vicryl suture with a PMI suture passer. Abdomen was then desufflated and trocars were removed. A [id number]-[id number] 0 Vicryl suture was placed in the supraumbilical position. Subcutaneous tissues were reapproximated with 3-0 Vicryl and skin was closed with 4-0 Monocryl followed by Dermabond. The cholecystostomy tube was secured to the patient's side with a StatLock. Upon emergence she did have a run of V-tach, but maintained pulse during this and she was successfully extubated. She was transferred to the ICU postoperatively with a stat Cardiology consult. Dr. Jovita Moreno was present and scrubbed for the entirety of the procedure. DDS: Given some unusualy cardiac rhythms after start of surgery and with severe inflammation of gallbladder suggesting prolonged dissection, decision was made to place cholecystostomy tube for rapid sepsis control and then close. <ELECTRONICALLY SIGNED> By: Jovita Moreno MD 07/04/17 2220 1737 1807Dadee Moreno MD /nt
== END 2017-06-29 15:10 | disposition home or self-care (01) | DRG 853 ==
LOC: M.ERS 09:44 → M.TBA-ER 12:30 → M.3W 12:30 → M.ICU 12:30 → M.3W 13:54 → M.ICU 06-24 18:45 → M.2W 06-26 13:05
PROVIDERS: Family Medicine; Internal Medicine; Surgery; ADMIT Internal Medicine
PROC: 0F944ZZ Drainage of Gallbladder, Percutaneous Endoscopic Approach (ICD-10-PCS; principal; 2017-06-24)
PROC: B2151ZZ Fluoroscopy of Left Heart using Low Osmolar Contrast (ICD-10-PCS; 2017-06-25)
PROC: B2111ZZ Fluoroscopy of Multiple Coronary Arteries using Low Osmolar Contrast (ICD-10-PCS; 2017-06-25)
PROC: 02703DZ Dilation of Coronary Artery, One Artery with Intraluminal Device, Percutaneous Approach (ICD-10-PCS; 2017-06-25)
DX: A41.9 Sepsis, unspecified organism (principal); I21.4 Non-ST elevation (NSTEMI) myocardial infarction; K80.00 Calculus of gallbladder with acute cholecystitis without obstruction; I47.2 Ventricular tachycardia; I10 Essential (primary) hypertension; G43.909 Migraine, unspecified, not intractable, without status migrainosus; Z96.642 Presence of left artificial hip joint; Z96.653 Presence of artificial knee joint, bilateral; E87.6 Hypokalemia; E66.9 Obesity, unspecified; M19.90 Unspecified osteoarthritis, unspecified site; D72.829 Elevated white blood cell count, unspecified; I25.10 Atherosclerotic heart disease of native coronary artery without angina pectoris; Z95.1 Presence of aortocoronary bypass graft; Z87.442 Personal history of urinary calculi; Z88.8 Allergy status to other drugs, medicaments and biological substances; Z68.36 Body mass index [BMI] 36.0-36.9, adult; Z79.899 Other long term (current) drug therapy; Z80.3 Family history of malignant neoplasm of breast; Z81.8 Family history of other mental and behavioral disorders

== ENCOUNTER → 2017-08-18 | Outpatient (CLI) | payer MEDICARE ==
[~2017-08-18] MED LIST changes: +ASPIR 8181 MG PO; +CIPRO500 M1 PO; +FLAGYL500 MG PO; +HYDROCODONE-AP1 EAC6 PO; +LANOXIN 0.25M0.25 M1 PO; +LIPITOR40 MG PO; +LISINOPRIL-HCT1 EACH PO; +NITROGLYCERIN0.4 MG SUBLING; +PACERONE 200 M200 M1 PO; +PLAVIX 75 MG TA75 M1 PO
== END ==
LOC: M.RAD 08:01 → M.MRI 08:01
DX: Z12.31 Encounter for screening mammogram for malignant neoplasm of breast (principal)

== ENCOUNTER → 2017-08-22 | Outpatient (CLI) | payer MEDICARE | LOC: M.RAD 08-19 08:34 | DX: N63.10 Unspecified lump in the right breast, unspecified quadrant (principal); R92.1 Mammographic calcification found on diagnostic imaging of breast ==

== ENCOUNTER → 2017-08-28 | Outpatient (CLI) | payer MEDICARE ==
[2017-08-28 08:33] LABS: CREATININE 0.8 mg/dL (0.6-1.3)
== END ==
LOC: M.LAB 08-20 15:58 → M.CT 08-25 08:00 → M.LAB 08-25 08:00 → M.CT 08:06 → M.LAB 08:30
PROVIDERS: Surgery
DX: Z09 Encounter for follow-up examination after completed treatment for conditions other than malignant neoplasm (principal); K80.20 Calculus of gallbladder without cholecystitis without obstruction; I70.0 Atherosclerosis of aorta; M47.816 Spondylosis without myelopathy or radiculopathy, lumbar region; M41.86 Other forms of scoliosis, lumbar region; I10 Essential (primary) hypertension; Z96.652 Presence of left artificial knee joint; Z90.710 Acquired absence of both cervix and uterus

== ENCOUNTER 2018-04-27 16:45 | Emergency (ER) | payer MEDICARE ==
[~2018-04-27] VITALS: Ht 160 cm; Wt 92.1 kg
[2018-04-27 16:53] VITALS: BP 142/93
[2018-04-28] MEDS ORDERED: NEURONTIN 300300 M1 PO (20:02)
[2018-04-28] MEDS ORDERED: CARVEDILOL6.25 M1 PO (20:02)
[2018-04-28] MEDS ORDERED: VITAMIN D250000 UNIT PO (22:16)
== END 2018-04-27 17:36 | disposition home or self-care (01) ==
LOC: M.ERS 16:45
DX: K42.9 Umbilical hernia without obstruction or gangrene (principal); I10 Essential (primary) hypertension; Z88.1 Allergy status to other antibiotic agents; Z96.642 Presence of left artificial hip joint; Z96.653 Presence of artificial knee joint, bilateral

== ENCOUNTER 2018-04-28 19:50 | Inpatient (IN) | payer MEDICARE ==
[~2018-04-28] VITALS: Ht 160 cm; Wt 95.3 kg
[2018-04-28 19:53] VITALS: BP 160/68
[2018-04-28] MEDS ORDERED: NEURONTIN 300300 M1 PO (20:02)
[2018-04-28] MEDS ORDERED: CARVEDILOL6.25 M1 PO (20:02)
[2018-04-28 20:21] LABS: ABSOLUTE EOSINOPHILS 0.2 thou/uL (0.0-0.7); ABSOLUTE LYMPHOCYTES 2.3 thou/uL (0.8-5.3); ABSOLUTE MONOCYTES 0.5 thou/uL (0.0-1.2); ABSOLUTE NEUTROPHILS 2.4 thou/uL (1.6-8.1); BASOPHILS 0.7 %; HEMATOCRIT 35.7 % (37.0-47.0); HEMOGLOBIN 12.5 gm/dL (12.0-15.0); LYMPHOCYTES 42.7 %; MCH 31.4 pg (26.0-34.0); MCV 89.7 fL (80.0-100.0); MONOCYTES 8.3 %; MPV 7.8 fl. (7.2-11.1); NUCLEATED RBCS 0 /100WBC; PLATELET COUNT* 277 thou/uL (150-400); POLYS 44.3 %; RBC 3.98 mil/uL (4.20-5.00); RDW-CV 12.8 % (10.5-14.5); WBC 5.4 thou/uL (4.0-11.0)
[2018-04-28 20:34] LABS: PROTIME 10.2 Seconds (9.20-11.50)
[2018-04-28 20:39] LABS: ANION GAP 12 mmol/L (7-16); BUN 29 mg/dL (7-18); CALCIUM 8.7 mg/dL (8.5-10.1); CHLORIDE 104 mmol/L (98-107); CO2 23 mmol/L (21-32); CREATININE 1.2 mg/dL (0.6-1.3); GLUCOSE 104 mg/dL (70-99); POTASSIUM 3.7 mmol/L (3.5-5.1); SODIUM 139 mmol/L (136-145); TROPONIN-I LEVEL <0.06 ng/mL (<0.06)
[2018-04-28 20:44] LABS: ALBUMIN 3.7 g/dL (3.4-5.0); ALKALINE PHOSPHATASE 72 U/L (46-116); NT-PRO BRAIN NAT PEPTIDE 339 pg/mL (<300); SGOT 24 U/L (15-37); SGPT 29 U/L (30-65); TOTAL BILIRUBIN 0.8 mg/dL (<0.1-1.0); TOTAL PROTEIN 6.7 g/dL (6.4-8.2)
[2018-04-28 21:48] VITALS: BP 133/72
[2018-04-28] MEDS ORDERED: VITAMIN D250000 UNIT PO (22:16)
[2018-04-28 22:30] VITALS: BP 164/70
--- NOTE | 2018-04-28 23:00 | NUR ---
67 Y/O FEMALE ADMITTED TO TELEMETRY ROOM 208 WITH AN ADMITTING DIAGNOSIS OF CP, HX OF CAD. ASSESSMENT COMPLETED CHARTED. TRACING SR ON MONITOR. PT DENIES PAIN, N/V/D. PT UP AD KYREE WITH STEADY GAIT. HOURLY ROUNDING FOR PT SAFETY. CLWR.
[2018-04-29] VITALS: BP 112/65
[2018-04-29 04:00] VITALS: BP 104/55
[2018-04-29 08:30] VITALS: BP 115/68
[2018-04-29 09:28] LABS: CHOLESTEROL 128 mg/dL (<200)
[2018-04-29 09:39] LABS: HDL CHOLESTEROL 37 mg/dL (>40); LDL CHOLESTEROL 88 mg/dL (<100); TC:HDL 3.5 Ratio (Not establshd); TRIGLYCERIDE < 15 mg/dL (<150); VLDL 3 mg/dL (<40)
[2018-04-29 09:40] LABS: SERUM ASSESSMENT Clear
[2018-04-29 12:26] VITALS: BP 152/61
--- NOTE | 2018-04-29 14:04 | NUR ---
ASSUMED PT CARE AT 0700 PT IS NPO FOR CARDIOLOGY CONSULTCARDIOLOGY ORDERED STRESS TEST WHICH PT COMPLETED PT IS ON 2GRAM SODIUM DIET, PT DENIES PAIN OR SOA ON RA, PT IS UP AD KYREE PT IS NOT A FALL RISK, PT IS SR ON THE MONITOR, PT IS PROGRESSING TOWARDS GOALS PT MAY DISCHARGE IF CLEARED BY CARDIOOGY, WILL CONTINUE TO MONITOR
[2018-04-29 15:41] VITALS: BP 121/74
[2018-04-29 16:04] VITALS: BP 121/74
--- NOTE | 2018-04-29 16:44 | EKG ---
[place] [address] ELECTROCARDIOGRAM REPORT Name: INEZ SMITH Room: [address] ADM IN .R.#: [id number] Admission: 04/28/18 Attend Phys: En Burdick, Discharge: Date of : 54 Report #: [id number] THIS REPORT FOR: //name// [facility] ED Test Date: 2018-04-28 Test Time: 19:56:37 Pat Name: INEZ SMITH Department: Room: [facility] Gender: F Educational Resource Coordinator: : 1950 Requested By: Shaina Diaz Order Number: [id number] MD: Scotty Powers Measurements Intervals [place] Rate: 67 P: 48 SD: 182 QRS: 4 QRSD: 103 T: 37 QT: 419 QTc: 443 Interpretive Statements Sinus rhythm Compared to ECG 06/27/2017 13:19:29 Atrial fibrillation no longer present Right-axis deviation no longer present Myocardial infarct finding no longer present T-wave abnormality no longer present Electronically Signed On 04-29-2018 16:44:23 CDT by Scotty Powers [email or web address] <ELECTRONICALLY SIGNED> By: Scotty Powers MD, FAC 04/29/18 1644 55 55 Scotty Powers MD, [facility] /EPI
--- NOTE | 2018-05-04 16:40 | CARDNUC ---
[place] [address] CARDIAC NUCLEAR IMAGING REPORT Name: CHAVEZ SMITHORABecky Regalado Room: [address]#: [id number] Admission: 04/28/18 Attend Phys: En Bullock Discharge: 04/29/18 Date of : 54 Date of Service: 05/04/18 [employer] Report #: [id number] THIS REPORT FOR: //name// APPROVED REPORT Imaging Protocol: Stress Tc-99m/Rest Tc-99m 2 days Study performed: 04/29/2018 08:22:00 Indication: Chest pain, Dyspnea, Carotid Artery Disease. Patient Location: In-Patient Room #: 208 Stress Tech: Kristen Irving Stress Nurse: Jasmina Marie RN NM Tech:TOÑITO Barillas Ht: 5 ft 2 in Wt: 210 lbs BSA: 1.95 m2 BMI: 38.40 Medical History Medical History: Angina, CAD s/p OR, CAD s/p stent, Carotid artery disease, Fatigue, HTN, Hyperlipidemia, Obesity , SOB, Weakness. Medications: Home meds include Amiodarone, ASA 81 Mg, Lipitor, Carvedilol, Plavix, Lisinopril-HCTZ, NTG. Allergies: Cephalosporins. Cardiac Risk Factors: Age, FHX of CAD, HTN, Hyperlipidemia, SOB. Previous Cardiac Procedures: Myocardial infarction, PCI. Pretest Chest Pain Characteristics: No chest pain Exercise History: Indeterminate Physical Disabilities: Legs, Back, generalized weakness, O2 NC 1L. Meds Held (24 hrs): Carvedilol, NTG. Resting Data Rest SPECT myocardial perfusion imaging was performed in supine position 30 minutes following the intravenous injection of 39.1 mCi of Tc-99m Sestamibi. Time of rest injection: 0800 Date: 05/01/2018 The images were gated to evaluate regional wall motion and calculate left ventricular ejection fraction. Administration Route: Straight Stick Administration Site: Right [place] [address] CARDIAC NUCLEAR IMAGING REPORT Name: INEZ SMITH Room: [address]#: [id number] Admission: 04/28/18 Attend Phys: En Bullock Discharge: 04/29/18 Date of : 54 Date of Service: 05/04/18 1640 Report #: [id number] Pharmacologic stress test was performed by injecting Regadenoson 0.4 mg IV push over 10-15 seconds immediately followed by the intravenous injection of 37.4 mCi of Tc-99m Sestamibi. Time of stress injection: 1050 Date: 04/29/2018 Administration Route: IV Administration Site: Right Hand Gated Stress SPECT was performed 40 minutes after stress injection. The images were gated to evaluate regional wall motion and calculate left ventricular ejection fraction. Prone imaging was performed. Stress Test Details Stress Test: Pharmacologic stress testing performed using 0.4 mg of regadenoson per 5 mL given IV over 10 seconds. Reason for pharmacologic stress test: Generalized weakness, Legs and Back, O2 NC 1L.. HR Max Heart Rate (APMHR): 155 bpm Resting HR: 75 bpm Target HR (85% APMHR): 131 bpm Max HR Achieved: 111 bpm % of APMHR: 71 Recovery HR: 98 bpm HR response to stress: Normal HR response to stress BP Resting BP: 117/75 mmHg Max BP: 105/70 mmHg Recovery BP: 121/78 mmHg BP response to stress: Normal blood pressure response to stress. ECG Resting ECG: Sinus Rhythm, small inferior q waves Stress ECG: Sinus Rhythm ST Change: none Arrhythmia: none Recovery ECG: nsr Recovery ST Change: none Recovery Arrhythmia: none Clinical Reason for Termination: Completed protocol Stress Symptoms: Dyspnea, Flushed. Exercise duration: 0 min 0 sec Exercise capacity: 1.00 [place] [address] CARDIAC NUCLEAR IMAGING REPORT Name: INEZ SMITH Room: [address]#: [id number] Admission: 04/28/18 Attend Phys: En Bullock Discharge: 04/29/18 Date of : 54 Date of Service: 05/04/18 [employer] Report #: [id number] Nurse Comments 67 year old female inpatient presented with recent chest pain, brought into ED by EMS. Patient completed a sitting Lexiscan with minimal side effects. Recovery unremarkable with PO caffeine. No CP reported at this time. Patient escorted via wheelchair by staff to Nuclear Medicine for images. Patient stable with no complaints at that time. Stress ECG Conclusion negative for ischemia Study Quality Study: Good Artifact: Mild Breast artifactIncreased GI uptake Lung Uptake: Normal Study Data At rest, the left ventricular ejection fraction was 58%.. Post stress, the left ventricular ejection was 73%.. SSS: 25 SRS: 12 SDS: 13 TID = 0.82. Perfusion Review of SPECT images reveal a large,mostly reversible inferior defect. It is is noted to be prominently , reversible on stress SPECT images.No other defects is seen. Prone imaging was performed, but the defect persisted indicating an ischemic/infarct of this inferior wall. Images were reviewed using Audaster. Wall Motion inferior hypokinesis Nuclear Conclusion ECG Findings: negative for ischemia Clinical Findings: negative for ischemia Nuclear Findings: positive for ischemia Exercise Capacity: not assessed Left Ventricular Function: normal Risk Study: moderate Evidence of a large inferior defect compatible with ischemia. Normal LV [place] [address] CARDIAC NUCLEAR IMAGING REPORT Name: INEZ SMITH Room: [address]#: [id number] Admission: 04/28/18 Attend Phys: En Bullock Discharge: 04/29/18 Date of : 54 Date of Service: 05/04/18 1640 Report #: [id number] <Conclusion> negative for ischemia <ELECTRONICALLY SIGNED> By: Dharmesh Watt MD, FACC 05/04/18 1640 [employer] 1640 Dharmesh Watt MD, FACC /INF
== END 2018-04-29 19:05 | disposition left against medical advice (07) | DRG 303 ==
LOC: M.ERS 19:50 → M.TBA-ER 21:17 → M.2W 21:17 → M.TBA-ER 21:49 → M.2W 04-29 19:05
PROVIDERS: Emergency Medicine; Registered Nurse; ADMIT Family Medicine
DX: I25.119 Atherosclerotic heart disease of native coronary artery with unspecified angina pectoris (principal); I10 Essential (primary) hypertension; E78.5 Hyperlipidemia, unspecified; I65.29 Occlusion and stenosis of unspecified carotid artery; Z96.653 Presence of artificial knee joint, bilateral; I48.91 Unspecified atrial fibrillation; Z96.642 Presence of left artificial hip joint; Z53.21 Procedure and treatment not carried out due to patient leaving prior to being seen by health care provider; Z80.3 Family history of malignant neoplasm of breast; Z81.8 Family history of other mental and behavioral disorders; Z98.84 Bariatric surgery status; I25.2 Old myocardial infarction; Z95.5 Presence of coronary angioplasty implant and graft; Z88.8 Allergy status to other drugs, medicaments and biological substances; Z79.899 Other long term (current) drug therapy

== ENCOUNTER → 2018-05-06 | Outpatient (CLI) | payer MEDICARE ==
[~2018-05-06] VITALS: Ht 160 cm; Wt 90.7 kg
[2018-05-06] VITALS (7 sets, daily range): BP systolic 108–139; BP diastolic 58–86
[~2018-05-06] MED LIST changes: +CARVEDILOL6.25 M1 PO; +NEURONTIN 300300 M1 PO; +VITAMIN D250000 UNIT PO
[2018-05-06 10:11] LABS: HEMATOCRIT 34.7 % (37.0-47.0); HEMOGLOBIN 12.2 gm/dL (12.0-15.0); MCH 31.6 pg (26.0-34.0); MCHC 35.2 g/dL (28.0-37.0); MCV 89.7 fL (80.0-100.0); MPV 7.9 fl. (7.2-11.1); RBC 3.87 mil/uL (4.20-5.00); RDW-CV 12.7 % (10.5-14.5); WBC 3.8 thou/uL (4.0-11.0)
[2018-05-06 10:20] LABS: APTT 23.6 Seconds (25.0-31.3); PROTIME 10.4 Seconds (9.20-11.50)
[2018-05-06 11:00] LABS: ALBUMIN 3.5 g/dL (3.4-5.0); ALKALINE PHOSPHATASE 67 U/L (46-116); ANION GAP 10 mmol/L (7-16); BUN 18 mg/dL (7-18); CALCIUM 8.8 mg/dL (8.5-10.1); CHLORIDE 106 mmol/L (98-107); CHOLESTEROL 146 mg/dL (<200); CO2 25 mmol/L (21-32); GLUCOSE 106 mg/dL (70-99); HDL CHOLESTEROL 39 mg/dL (>40); LDL CHOLESTEROL 78 mg/dL (<100); POTASSIUM 4.2 mmol/L (3.5-5.1); SGOT 20 U/L (15-37); SGPT 30 U/L (30-65); SODIUM 141 mmol/L (136-145); TC:HDL 3.7 Ratio (Not establshd); TOTAL BILIRUBIN 0.7 mg/dL (<0.1-1.0); TOTAL PROTEIN 6.7 g/dL (6.4-8.2); TRIGLYCERIDE 148 mg/dL (<150); VLDL 30 mg/dL (<40)
[2018-05-06 11:02] LABS: SERUM ASSESSMENT Clear
--- NOTE | 2018-05-06 15:39 | EKG ---
[place] [address] ELECTROCARDIOGRAM REPORT Name: INEZ SMITH Room: [facility]#: [id number] Admission: 05/06/18 Attend Phys: Nick Starr MD, F Discharge: Date of : 54 Report #: [id number] THIS REPORT FOR: //name// [facility] Test Date: 2018-05-06 Test Time: 09:34:07 Pat Name: INEZ SMITH Department: Room: Gender: F Screening Nurse: : 1950 Requested By: Nick Starr Order Number: [id number] Reading MD: Nick Starr Measurements Intervals [place] Rate: 62 P: 38 GA: 185 QRS: 0 QRSD: 93 T: 73 QT: 365 QTc: 371 Interpretive Statements Sinus rhythm Compared to ECG 04/28/2018 19:56:37 No significant changes Electronically Signed On 05-06-2018 15:39:08 CDT by Nick Starr [email or web address] <ELECTRONICALLY SIGNED> By: Nick Starr MD, [facility] 05/06/18 1539 0934 3 Nick Starr MD, FACC /EPI
--- NOTE | 2018-05-06 16:57 | CARD ---
[address] [address] CARDIAC CATH REPORT Name: INEZ SMITH Room: [facility]#: [id number] Admission: 05/06/18 Attend Phys: Nick Starr MD, F Discharge: Date of : 54 Report #: [id number] THIS REPORT FOR: //name// APPROVED REPORT Study performed: 05/06/2018 10:37:05 Patient Details Patient Status: Out-Patient Room #: The patient is a 67 year-old female Event Personnel Nick Starr Air Drier Machine Operator, Aneta Lymna RN RN, Juan R Armendariz Scrub, Marcelo Gutiérrez (R) Monitor Procedures Performed Art Access - R femoral artery* , Left Heart Catheterization Indication Positive stress test, Chest pain Risk Factors Hypercholesterolemia, Hypertension Previous Procedures/Diagnoses Previous PCI Procedure Narrative The patient was brought electively to the Cardiac Catheterization Laboratory and was prepped and draped in a sterile manner. The right femoral was infiltrated with 2% Lidocaine subcutaneous anesthesia. A 6fr Ultimum Sheath sheath was inserted into the right femoral artery. Coronary angiography was performed using coronary diagnostic catheters. The right coronary system was accessed and visualized with a 5fr JR4 catheter. The left coronary system was accessed and visualized with a 5fre JL4 catheter. The left ventricle was accessed and visualized with a 5fr Pigtail catheter. Left ventricular/Aortic Valve gradient assessed via catheter pullback. Left ventriculogram was performed in DENNY projection. Closure device was deployed with a 6 Fr Mynx 6Fr/7Fr. The patient tolerated the procedure well and there were no complications associated with the procedure. There was no hematoma. Attempted procedure from the right radial artery, but the needle was unable to locate the artery. The procedure was then performed from [place] [address] CARDIAC CATH REPORT Name: INEZ SMITH Room: [facility]#: [id number] Admission: 05/06/18 Attend Phys: Nick Starr MD, F Discharge: Date of : 54 Report #: [id number] Intraoperative Conscious Sedation Sedation start time: 1125 Case end Time: 1154 Fentanyl 25 mcg Versed 2 mg Fluoro Time: 1.5 minutes Dose: DAP 75170 cGycm2 529 mGy Contrast Type and Amount: Omnipaque 130 ml Coronary Angiography The patient's coronary anatomy is right dominant. Diagnostic Cath Left Main 0% stenosis LAD mid stent with 0% stenosis. More distally there was a 50% stenosis Circumflex 30% mid stenosis noted Right Coronary chronically occluded proximally and filled distally by bridging collaterals Left Ventriculography The left ventricle is normal in size with normal contractility. The left ventricular ejection fraction is estimated to be 55-60%. Left ventricular wall motion abnormalities are not present. There is no mitral insufficiency. Hemodynamics The aortic pressure is 132/65 mmHg with a mean of 91 mmHg. The left ventricular pressure is 129/8 mmHg with a mean of mmHg. The left ventricular end diastolic pressure is 11 mmHg. There was no gradient across the aortic valve upon pullback. Pullback from the left ventricle to the aorta revealed no gradient across the aortic valve. Conclusion 1. No restenosis of stent in mid lad 2. 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 LVEF 55-60% Recommendations Aggressive Medical Therapy <ELECTRONICALLY SIGNED> By: Nick Starr MD, FACC 05/06/181655 55 55Dadanny Starr MD, FACC /INF
== END | disposition home or self-care (01) ==
LOC: M.CL 08:53
PROVIDERS: Internal Medicine Cardiovascular Disease
DX: I25.10 Atherosclerotic heart disease of native coronary artery without angina pectoris (principal); I25.82 Chronic total occlusion of coronary artery; I10 Essential (primary) hypertension; E78.00 Pure hypercholesterolemia, unspecified; I25.2 Old myocardial infarction; G62.9 Polyneuropathy, unspecified; Z88.8 Allergy status to other drugs, medicaments and biological substances; Z98.84 Bariatric surgery status; Z96.653 Presence of artificial knee joint, bilateral; Z96.642 Presence of left artificial hip joint; Z79.82 Long term (current) use of aspirin; Z79.899 Other long term (current) drug therapy

== ENCOUNTER 2018-07-13 13:14 | Emergency (ER) | payer MEDICARE ==
[~2018-07-13] VITALS: Ht 157.5 cm; Wt 88.9 kg
[2018-07-13] MEDS ORDERED: DOXYCYCLINE 10100 MG PO (13:34)
[2018-07-13 14:43] VITALS: BP 120/69
== END 2018-07-13 14:43 | disposition home or self-care (01) ==
LOC: M.ERS 13:14
DX: L72.3 Sebaceous cyst (principal); I10 Essential (primary) hypertension; E78.00 Pure hypercholesterolemia, unspecified; Z88.1 Allergy status to other antibiotic agents; Z96.653 Presence of artificial knee joint, bilateral; Z96.642 Presence of left artificial hip joint

== ENCOUNTER → 2018-10-26 | Outpatient (CLI) | payer MEDICARE ==
[~2018-10-26] MED LIST changes: +DOXYCYCLINE 10100 MG PO
== END ==
LOC: M.MRI 15:37
DX: G11.9 Hereditary ataxia, unspecified (principal); I67.82 Cerebral ischemia

== ENCOUNTER 2018-11-18 14:28 | Emergency (ER) | payer MEDICARE ==
[~2018-11-18] VITALS: Ht 160 cm; Wt 86.2 kg
[2018-11-18 14:35] VITALS: BP 129/60
[2018-11-18] MEDS ORDERED: CORTISPORIN OTI10 ML OTIC (14:53)
== END 2018-11-18 15:25 | disposition home or self-care (01) ==
LOC: M.ERS 14:28
DX: H92.02 Otalgia, left ear (principal); I10 Essential (primary) hypertension; E78.00 Pure hypercholesterolemia, unspecified; I25.2 Old myocardial infarction; G62.9 Polyneuropathy, unspecified; Z96.653 Presence of artificial knee joint, bilateral; Z96.642 Presence of left artificial hip joint; Z88.1 Allergy status to other antibiotic agents

== ENCOUNTER 2019-01-20 08:37 | Inpatient (IN) | payer MEDICARE ==
[~2019-01-20] VITALS: Ht 152.4 cm; Wt 89.2 kg
[~2019-01-20 08:37] MED LIST changes: +CORTISPORIN OTI10 ML OTIC
[2019-01-20 08:58] VITALS: BP 160/64
[2019-01-20] MEDS ORDERED: CELEXA 10 MG TA10 M1 PO (09:01)
[2019-01-20] MEDS ORDERED: LIPITOR10 MG PO (09:02)
[2019-01-20 09:29] LABS: ABSOLUTE EOSINOPHILS 0.1 thou/uL (0.0-0.7); ABSOLUTE LYMPHOCYTES 1.1 thou/uL (0.8-5.3); ABSOLUTE MONOCYTES 0.3 thou/uL (0.0-1.2); ABSOLUTE NEUTROPHILS 4.2 thou/uL (1.6-8.1); BASOPHILS 0.7 %; EOSINOPHILS 1.8 %; HEMOGLOBIN 11.1 gm/dL (12.0-15.0); LYMPHOCYTES 19.2 %; MCH 31.4 pg (26.0-34.0); MCHC 33.5 g/dL (28.0-37.0); MCV 93.9 fL (80.0-100.0); MONOCYTES 5.7 %; MPV 8.7 fl. (7.2-11.1); NUCLEATED RBCS 0 /100WBC; PLATELET COUNT* 190 thou/uL (150-400); POLYS 72.6 %; RBC 3.52 mil/uL (4.20-5.00); RDW-CV 14.1 % (10.5-14.5); WBC 5.8 thou/uL (4.0-11.0)
[2019-01-20 09:38] LABS: URINE BILIRUBIN NEGATIVE (Negative); URINE BLOOD TRACE (Negative); URINE CLARITY CLEAR; URINE COLOR YELLOW; URINE GLUCOSE-RANDOM NEGATIVE (Negative); URINE KETONES NEGATIVE (Negative); URINE LEUKOCYTES-REFLEX NEGATIVE (Negative); URINE NITRITE-REFLEX NEGATIVE (Negative); URINE PROTEIN TRACE (Negative)
[2019-01-20 09:39] LABS: CREATININE 1.1 mg/dL (0.6-1.3)
[2019-01-20 09:43] LABS: ALBUMIN 3.5 g/dL (3.4-5.0); TOTAL BILIRUBIN 0.9 mg/dL (<0.1-1.0); TOTAL PROTEIN 6.8 g/dL (6.4-8.2)
[2019-01-20 13:31] VITALS: BP 160/64
--- NOTE | 2019-01-20 13:33 | EKG ---
[place] [address] ELECTROCARDIOGRAM REPORT Name: INEZ SMITH Room: [address] ADM IN .R.#: [id number] Admission: 01/20/19 Attend Phys: Zafar Bond Discharge: Date of : 54 Report #: [id number] THIS REPORT FOR: //name// [facility] ED Test Date: 2019-01-20 Test Time: 09:32:00 Pat Name: INEZ SMITH Department: Room: [facility] Gender: F Laminator [employer] Boards: : 1950 Requested By: Panda Machado Order Number: [id number] MD: Nick Starr Measurements Intervals [place] Rate: 59 P: 102 CA: 166 QRS: 87 QRSD: 100 T: 1 QT: 468 QTc: 464 Interpretive Statements Sinus rhythm Low voltage with right axis deviation poor r wave progression Baseline wander in lead(s) V4 Compared to ECG 05/06/2018 09:34:07 Right-axis deviation now present Low QRS voltage now present Electronically Signed On 01-20-2019 13:33:29 RN FIELD by Nick Starr [email or web address] <ELECTRONICALLY SIGNED> By: Nick Starr MD, [facility] 01/20/19 1333 0932 0932 Nick Starr MD, [facility] /EPI
[2019-01-20 15:32] VITALS: BP 123/91
--- NOTE | 2019-01-20 16:16 | NUR ---
RECEIVED REPORT ON PATIENT. FALL RISK PRECAUTIONS IN PLACE. HOURLY ROUNDING COMPLETED. I AGREE WITH MORNING ASSESSMENT.
--- NOTE | 2019-01-20 16:25 | NUR ---
PT A&Ox4. VITALS STABLE. PAIN MEDICATIONS ORDRED BY DR. MASON PENDING SURGERY. DENIED NAUSEA. IV PATENT. ADMIT COMPLETED. UP STAND BY. CALL LIGHT WITHIN REACH. REPORT GIVEN TO MAGGIE FOR REMAINDER OF SHIFT.
--- NOTE | 2019-01-20 16:42 | NUR ---
REPORT GIVEN TO TELE NURSE, TRANSFERRING PATIENT TO SSECOND FLOOR FOR TELE STATUS. FALL RISK PRECAUITONS IN PLACE. HOURLY ROUNDING COMPLETED.
[2019-01-20 17:10] LABS: INR 1.1; PROTIME 11.4 Seconds (9.20-11.50)
[2019-01-20 20:00] VITALS: BP 140/51
[2019-01-21] VITALS (7 sets, daily range): BP systolic 116–162; BP diastolic 55–71
--- NOTE | 2019-01-21 03:53 | NUR ---
PT ALERT ORIENTED. UP TO BR WITH STD BY ASSIST. INITAL ASSESSMENT O2 SATS 87% ON RA. O2 AT 2 LITERS NC. TELEMETRY SHOWS SR. NIHSS 1. TYLENOL GIVEN FOR GALDAMEZ PAIN. WCTM.
[2019-01-21 05:25] LABS: HEMATOCRIT 31.6 % (37.0-47.0); HEMOGLOBIN 10.7 gm/dL (12.0-15.0); MCH 31.5 pg (26.0-34.0); MCHC 33.7 g/dL (28.0-37.0); MCV 93.5 fL (80.0-100.0); MPV 8.6 fl. (7.2-11.1); RBC 3.38 mil/uL (4.20-5.00); RDW-CV 14.3 % (10.5-14.5); WBC 7.3 thou/uL (4.0-11.0)
[2019-01-21 05:45] LABS: MAGNESIUM 1.9 mg/dL (1.8-2.4); PHOSPHORUS* 3.9 mg/dL (2.5-4.9); POTASSIUM 4.1 mmol/L (3.5-5.1); TOTAL PROTEIN 6.4 g/dL (6.4-8.2)
--- NOTE | 2019-01-21 13:32 | NUR ---
Pt is A&O. Resides at home with her dtr. Independent. Pt uses a walker for mobility. Pt does not use home o2. No hx of HH. Hx of skilled at [facility]. Goal is home at [place], no needs anticipated.
[2019-01-21 14:38] LABS: BE -8.2 mmol/L (-2 to +3); PCO2 36.7 mmHg (35.0-45.0); PO2 67.4 mmHg (75.0-100.0)
[2019-01-21 14:52] LABS: pH 7.296 (7.340-7.450)
--- NOTE | 2019-01-21 15:39 | 2DMMODE ---
[place] [address] 2 D/M-MODE ECHOCARDIOGRAM Name: INEZ SMITH Room: [address] IN [facility]#: [id number] Admission: 01/20/19 Attend Phys: Radha Pagan Discharge: Date of : 54 Date of Service: 01/21/19 1538 Report #: [id number] THIS REPORT FOR: //name// APPROVED REPORT Study performed: 01/21/2019 10:15:37 EXAM: Comprehensive 2D, Doppler, and color-flow Echocardiogram Patient Location: In-Patient Room #: [facility] Status: routine BSA: 1.91 HR: 71 bpm BP: 162/63 mmHg Rhythm: NSR Other Information Study Quality: Good Indications Dyspnea 2D Dimensions IVSd: 11.81 (7-11mm) LVOT Diam: 19.12 (18-24mm) LVDd: 49.62 mm PWd: 10.93 (7-11mm) Ascending Ao: 34.99 (22-36mm) LVDs: 34.84 (25-40mm) Aortic Root: 33.23 mm Volumes Left Atrial Volume (Systole) LA ESV Index: 39.00 mL/m2 Aortic Valve AoV Peak Shalom.: 1.76 m/s AO Peak Gr.: 12.39 mmHg LVOT Max P.84 mmHg AO Mean Gr.: 6.62 mmHg LVOT Mean P.53 mmHg LVOT Max V: 1.31 m/s AO V2 VTI: 37.28 cm LVOT Mean V: 0.87 m/s DANNIE (VTI): 2.37 cm2 LVOT V1 VTI: 30.74 cm Mitral Valve E/A Ratio: 1.46 MV Decel. Time: 129.21 ms MV E Max Shalom.: 1.41 m/[place] [address] 2 D/M-MODE ECHOCARDIOGRAM Name: INEZ SMITH Room: [address] IN .R.#: [id number] Admission: 01/20/19 Attend Phys: Radha Pagan Discharge: Date of : 54 Date of Service: 01/21/19 1538 Report #: [id number] MV PHT: 37.47 ms MVA (PHT): 5.87 cm2 TDI E/Lateral E': 9.40 E/Medial E': 11.75 Medial E' Shalom.: 0.12 m/s Lateral E' Shalom.: 0.15 m/s Pulmonary Valve PV Peak Shalom.: 1.14 m/s PV Peak Gr.: 5.22 mmHg Tricuspid Valve RAP Estimate: 5.00 mmHg TR Peak Gr.: 36.85 mmHg RVSP: 41.00 mmHg PA Pressure: 41.00 mmHg Left Ventricle The left ventricle is normal size. There is normal LV segmental wall motion. There is normal left ventricular wall thickness. Left ventricular systolic function is normal. LVEF is 55-60%. Transmitral Doppler flow pattern suggests restrictive physiology. Right Ventricle The right ventricle is normal size. The right ventricular systolic function is normal. Atria Left atrium is moderately dilated. Right atrium is mildly dilated. Aortic Valve Mild aortic valve sclerosis. No aortic regurgitation is present. There is no aortic valvular stenosis. Mitral Valve There is mitral annular calcification. Mild mitral regurgitation. No evidence of mitral valve stenosis. Tricuspid Valve The tricuspid valve is normal in structure. Mild tricuspid regurgitation. Moderate pulmonary hypertension. The RVSP is 50-55 mmHg. Pulmonic Valve The pulmonary valve is normal in structure. Mild [place] [address] 2 D/M-MODE ECHOCARDIOGRAM Name: INEZ SMITH Room: [address] IN [facility]#: [id number] Admission: 01/20/19 Attend Phys: Radha Pagan Discharge: Date of : 54 Date of Service: 01/21/19 1538 Report #: [id number] Great Vessels The aortic root is normal in size. IVC is normal in size and collapses >50% with inspiration. Pericardium There is no pericardial effusion. <Conclusion> The left ventricle is normal size. There is normal left ventricular wall thickness. Left ventricular systolic function is normal. LVEF is 55-60%. Transmitral Doppler flow pattern suggests restrictive physiology. Left atrium is moderately dilated. Right atrium is mildly dilated. Mild aortic valve sclerosis. There is no aortic valvular stenosis. Mild mitral regurgitation. Mild tricuspid regurgitation. Moderate pulmonary hypertension. The RVSP is 50-55 mmHg. <ELECTRONICALLY SIGNED> By: Moise Rowe MD, FACC 01/21/19 1538 1538 1538 Moise Rowe MD, FACC /INF
[2019-01-21 16:31] LABS: CALCIUM 8.8 mg/dL (8.5-10.1); POTASSIUM 4.2 mmol/L (3.5-5.1)
--- NOTE | 2019-01-21 18:30 | NUR ---
RECEIVED REPORT FROM FREIDA BROWN. ASSUMED CARE OF PT AROUND 0730. PT A&O X4. VSS THIS AM, PT O2 SAT >90% ON 2L PER NC. TECHNICAL SALES ASSOCIATE IN PLACE TRACING SR WITH PACS TO SA WITH PACS. AM ASSESSMENT AND VITALS COMPLETED CHARTED. PT REPORT ABD PAIN AND NAUSEA - SCHEDULED ZOFRAN GIVEN AND PRN MORPHINE, PT REPORTED PARTIAL TO FULL RELEIF. PT REPORTED MIGRAINE AROUND 1200 - RECEVIVED FLORICET AND IV COMPAZINE, MIGRAINE RESOLVED. AROUND 1400 PT REPORTED FEELING SOA, O2 SAT DOWN IN 70'S - REQUIRED 10L OXYGEN TO BRING SATS UP TO 91%. ABG'S ORDERED, CAME BACK CRITICAL. RESULTS GIVEN TO DR DALTON. CTA COMPLETED, AWAITING RESULTS. PT ABLE TO MAINTAIN SATS >90% ON 9L PER NC. LAB CALLED WITH TWO CRITICAL TROPONIN LEVELS - DR DALTON NOTIFIED EACH TIME, CARDIOLOGY CONSULTED AND CARDIOLOGY HEPARIN PROTOCOL STARTED PER ORDERS. PT VOIDING WELL, APPETITE POOR. ENCOURAGED PT TO USE IS AND FLUTTER. PT REPOSITIONING SELF IN ADDITION TO Q2HR REPOSITIONING. PT CURRENTLY ON PHONE WITH DAUGHTER. FALL PRECAUTIONS IN PLACE. CALL LIGHT IS WITHIN REACH. HOURLY ROUNDING PERFORMED.
[2019-01-21 19:11] LABS: HEMATOCRIT 33.6 % (37.0-47.0); MCH 30.9 pg (26.0-34.0); MCHC 32.8 g/dL (28.0-37.0); MCV 94.2 fL (80.0-100.0); MPV 8.4 fl. (7.2-11.1); RBC 3.57 mil/uL (4.20-5.00); RDW-CV 14.4 % (10.5-14.5); WBC 15.8 thou/uL (4.0-11.0)
[2019-01-21 19:25] LABS: CALCIUM 9.4 mg/dL (8.5-10.1); CREATININE 1.2 mg/dL (0.6-1.3); POTASSIUM 3.7 mmol/L (3.5-5.1)
[2019-01-21 19:27] LABS: APTT 28.1 Seconds (25.0-31.3); INR 1.3; PROTIME 13.4 Seconds (9.20-11.50)
[2019-01-22] VITALS: BP 107/56
[2019-01-22 00:07] LABS: TROPONIN-I LEVEL 0.84 ng/mL (<0.06)
[2019-01-22 00:51] LABS: URINE BILIRUBIN NEGATIVE (Negative); URINE BLOOD 3+ (Negative); URINE CLARITY CLEAR; URINE COLOR YELLOW; URINE GLUCOSE-RANDOM NEGATIVE (Negative); URINE KETONES NEGATIVE (Negative); URINE LEUKOCYTES NEGATIVE (Negative); URINE NITRITE NEGATIVE (Negative); URINE PROTEIN NEGATIVE (Negative); URINE UROBILINOGEN 0.2 E.U./dl (0.2-1.0)
[2019-01-22 00:56] LABS: BACTERIA 1-9 Few /HPF (None Seen); CRYSTALS None Seen /LPF (None Seen); FINE GRANULAR CASTS 0-3 Few /LPF (None Seen); HYALINE CASTS 0-3 Few /LPF (None Seen); MUCUS 4-6 Moderate strn/LPF (None Seen); SQUAMOUS 0-3 Few /LPF (0-3); URINE RBC 3-10 Few /HPF (0-2); URINE WBC None Seen /HPF (0-5)
[2019-01-22 01:19] LABS: HEMATOCRIT 29.9 % (37.0-47.0); MCH 31.3 pg (26.0-34.0); MCHC 33.5 g/dL (28.0-37.0); MCV 93.4 fL (80.0-100.0); MPV 8.3 fl. (7.2-11.1); NUCLEATED RBCS 0 /100WBC; PLATELET COUNT* 172 thou/uL (150-400); RDW-CV 14.1 % (10.5-14.5); WBC 13.1 thou/uL (4.0-11.0)
[2019-01-22 01:30] LABS: ALBUMIN 2.5 g/dL (3.4-5.0); CALCIUM 8.5 mg/dL (8.5-10.1); CREATININE 1.2 mg/dL (0.6-1.3); MAGNESIUM 1.9 mg/dL (1.8-2.4); POTASSIUM 4.1 mmol/L (3.5-5.1); TOTAL BILIRUBIN 1.2 mg/dL (<0.1-1.0); TOTAL PROTEIN 5.8 g/dL (6.4-8.2)
[2019-01-22 04:00] VITALS: BP 94/61
[2019-01-22 04:48] LABS: ABSOLUTE LYMPHOCYTES 0.8 thou/uL (0.8-5.3); ABSOLUTE MONOCYTES 0.3 thou/uL (0.0-1.2); ABSOLUTE NEUTROPHILS 12.1 thou/uL (1.6-8.1); ANISOCYTOSIS 1+; PLATELET ESTIMATE ADEQUATE; TOXIC GRANULATION 1+
--- NOTE | 2019-01-22 07:05 | NUR ---
CHANGE OF SHIFT, BEDSIDE REPORT GIVEN PATIENT SEEN AT BEDSIDE, IN BEDE ASLEEP ASSUMED PATIENT CARE
--- NOTE | 2019-01-22 07:30 | CON ---
[address] [address] CONSULTATION Name: SARAHINEZ L Room: [address] IN .R.#: [id number] Admission: 01/20/19 Attend Phys: Zafar Bond Discharge: Date of : 54 Report #: [id number] THIS REPORT FOR: //name// CC: Ralph Pagan DATE OF SERVICE: 01/21/2019 INFECTIOUS DISEASE CONSULTATION ATTENDING PHYSICIAN: Dr. Pagan. REASON FOR CONSULTATION: Probable acute cholecystitis, also progressive dyspnea, early pneumonitis. HISTORY OF PRESENT ILLNESS: Chart reviewed, patient examined. This is a 68-year-old woman, previous history of gastric bypass, has known coronary artery disease, who was admitted with complaints of upper abdominal pain. She says it started fairly abruptly last night. She has had progressive dyspnea as well, presented to the Emergency Room and subsequently admitted. She is not aware of any fevers, chills. Appetite has been somewhat diminished since her admission. She has increasing requirements in terms of supplemental oxygen, now up to 8 liters, maintaining sats in low 90s. Initial laboratory was fairly unremarkable with a normal white count. Urinalysis unremarkable. Chest x-ray showed question of early pneumonitis. Abdominal ultrasound showed small 7 mm stone in the neck of the gallbladder, mild thickening. Blood cultures were collected and sterile thus far. Most recent ABG: pH 7.296, pCO2 of 36.7, pO2 of 67.4 and that is on 8 liters. She is lethargic, mildly encephalopathic. ALLERGIES: LISTED TO CEPHALOSPORINS. CURRENT MEDICATIONS: Include guaifenesin, atorvastatin, meropenem, ascorbic acid, acetylcysteine, metoclopramide, sucralfate, levofloxacin, p.r.n. analgesics and antiemetics. PAST MEDICAL HISTORY: As described above, history of hypertension, high cholesterol, has known atherosclerotic coronary artery disease with previous acute myocardial infarction, stenting, lower extremity neuropathy, bilateral knee replacements, left hip replacements, gastric bypass. SOCIAL HISTORY: Nonsmoker, no ethanol, no illicit drug use. FAMILY HISTORY: Noncontributory. REVIEW OF SYSTEMS: Otherwise noted [place] [address] CONSULTATION Name: INEZ SMITH Room: [address]#: [id number] Admission: 01/20/19 Attend Phys: Zafar Bond Discharge: Date of : 54 Report #: [id number] PHYSICAL EXAMINATION: GENERAL: She appears ill, somewhat somnolent at this point. She does arouse, initially was not communicative, somewhat chronically ill. VITAL SIGNS: Temperature 98.6, pulse 65, respirations 20, blood pressure 157/60. SKIN: Warm, dry. HEENT: Normocephalic. Extraocular muscles intact. Does have nasal cannula oxygen in place. NECK: Supple. LUNGS: Scattered coarse breath sounds. HEART: Irregular. I do not appreciate a murmur. ABDOMEN: No apparent peritoneal signs, some mild guarding. EXTREMITIES: Lower extremities: No evidence of edema. GENITOURINARY: Deferred. RECTAL: Deferred. LABORATORY DATA: Initial CBC: White count of 5.8, H and H 11.1 and 33.0, platelets of 190. Repeat white count of 7.3. Urinalysis, unremarkable. Electrolytes: Sodium 138, potassium 4.0, chloride 103, bicarbonate is 23, anion gap of 12, BUN and creatinine 20 and 1.1, glucose of 103. LFTs unremarkable. Albumin of 3.5, total protein 6.8, estimated GFR of 50. Troponin less than 0.06. CT abdomen and pelvis, moderate right pleural effusion, basilar atelectasis, small left pleural effusion, question of atypical pneumonia on the left. Liver has subtle micronodular contour raising question of cirrhosis. Adjacent to the gallbladder, there was a 2.8 x 1.5 cm focus of hyperenhancement, periumbilical hernia without evidence of strangulation. Ultrasound as noted above. Liver confirmed to have a nodular contour. Lactic acid 0.9. CRP less than 2. Sed rate of 43. ASSESSMENT: Abdominal pain, possible acute cholecystitis. She, at this point, complains primarily about difficulty breathing. First, I was concerned about some pleuritic-type chest pain, although she somewhat refuted that. Continue empiric antimicrobial therapy at this point. She appears quite ill, quite distressed, could consider evaluation including a possible pulmonary embolism which may fit this clinical picture. We will await pending studies, support as required. <ELECTRONICALLY SIGNED> By: Cleveland Somers MD 01/22/19 0730 1553 [id number] Somers MD /nt
[2019-01-22 08:00] VITALS: BP 110/61
--- NOTE | 2019-01-22 08:12 | NUR ---
ASSUMED PATIENT CARE AT 1900. ASSESSMENT COMPLETED CHARTED. PATIENT IS SA ON MONITOR. PATIENT REPORTED SOA AT 0600. PHYSICIAN NOTIFIED, NEW ORDERS RECEIVED. PATIENT FELT RELIEF AFTER BREATHING TREATMENT. PATIENT INCONTINENT THROUGHOUT THE NIGHT BUT VOIDED IN BEDPAN OCCCASIONALLY. CONTINUOUS PULSE OXIMETRY IN PLACE. PULMONOLOGY NOTIFIED OF CTA RESULTS. CARDIOLOGY CONSULTED. HOURLY ROUNDING IN PLACE FOR PATIENT SAFETY. CLWR.
--- NOTE | 2019-01-22 08:28 | NUR ---
I HAVE REVIEWED THE DOCUMENTATION OF BRANDEN BROWN. I CONCUR WITH HIS CHARTING.
[2019-01-22 11:55] VITALS: BP 116/62
--- NOTE | 2019-01-22 13:55 | EKG ---
[place] [address] ELECTROCARDIOGRAM REPORT Name: INEZ SMITH Room: [address] ADM IN M.R.#: [id number] Admission: 01/20/19 Attend Phys: Zafar Bond Discharge: Date of : 54 Report #: [id number] THIS REPORT FOR: //name// [facility] Test Date: 2019-01-21 Test Time: 16:59:37 Pat Name: INEZ SMITH Department: Room: [address] Gender: F Label Cutter: GORDON : 1950 Requested By: Radha Pagan Order Number: [id number] Liv MD: Nick Starr Measurements Intervals [place] Rate: 75 P: NE: QRS: 59 QRSD: 87 T: 23 QT: 412 QTc: 461 Interpretive Statements sinus rhythm with pac's Low voltage, extremity leads poor r wave progression Compared to ECG 01/20/2019 09:32:00 no change Electronically Signed On 01-22-2019 13:55:31 MULTICUT LINE OPERATOR by Nick Starr [email or web address] <ELECTRONICALLY SIGNED> By: Nick Starr MD, FAC 01/22/19 1355 1659 1659 Nick Starr MD, [facility] /EPI
--- NOTE | 2019-01-22 13:56 | EKG ---
[place] [address] ELECTROCARDIOGRAM REPORT Name: INEZ SMITH Room: [address] ADM IN M.R.#: [id number] Admission: 01/20/19 Attend Phys: Zafar Bond Discharge: Date of : 54 Report #: [id number] THIS REPORT FOR: //name// [facility] Test Date: 2019-01-21 Test Time: 17:11:58 Pat Name: INEZ SMITH Department: Room: [address] Gender: F Patch Washer: GORDON : 1950 Requested By: Radha Pagan Order Number: [id number] Liv MD: Nick Starr Measurements Intervals [place] Rate: 71 P: ND: QRS: 38 QRSD: 91 T: 29 QT: 425 QTc: 462 Interpretive Statements sinus rhythm poor r wave progression Low voltage, extremity leads Electronically Signed On 01-22-2019 13:56:12 LABOR CONTRACTOR by Nick Starr [email or web address] <ELECTRONICALLY SIGNED> By: Nick Starr MD, [facility] 01/22/19 1356 1710 10 Nick Starr MD, FACC /EPI
[2019-01-22 15:33] VITALS: BP 100/64
--- NOTE | 2019-01-22 16:21 | CON ---
[address] [address] CONSULTATION Name: INEZ SMITH Room: [address] IN ..#: [id number] Admission: 01/20/19 Attend Phys: Zafar Bond Discharge: Date of : 54 Report #: [id number] THIS REPORT FOR: //name// CC: Ralph Brennan DO Radha Pagan DATE OF SERVICE: 01/22/2019 HISTORY OF PRESENT ILLNESS: The patient is a 68-year-old single white female, who I was asked to see in the hospital after she complained of chest pain. The patient had a bare metal stent placed in LAD in 06/2017. I performed a repeat heart catheterization in April of this year that showed the stent in the LAD had no restenosis. The right coronary artery is chronically occluded, filled by collaterals. Ejection fraction of 60%. She has done well since that time. The patient recently has been having epigastric pain. It is not related to exertion or meals. She was found to have gallstones. I was asked to see her for further evaluation and treatment. She is not very active, but does note some shortness of breath and cough. She has had no palpitations or syncope. PAST MEDICAL HISTORY: She has had previous gastric bypass surgery for obesity. She has had hip surgery, knee surgery, hypertension, and hyperlipidemia. MEDICATIONS: Include aspirin, Lipitor, carvedilol, Neurontin, lisinopril. ALLERGIES: SHE HAS AN ALLERGY TO CEPHALOSPORINS. FAMILY HISTORY: Negative for heart disease. SOCIAL HISTORY: , lives with daughter in [place]. No smoking or alcohol abuse. REVIEW OF SYSTEMS: She is overweight, currently standing 5 feet 3 inches, weighing 196 pounds. She has no history of stroke, asthma, peptic ulcer disease, liver disease, kidney disease, psychiatric illness or chronic skin condition. PHYSICAL EXAMINATION: GENERAL: A large, elderly female lying in bed. She appeared in no distress. VITAL SIGNS: 110/60, pulse 70. She is afebrile. HEENT: She was anicteric. Conjunctivae pink. Mucous membranes moist. NECK: Neck veins not appear distended. CHEST: Clear to auscultation. CARDIOVASCULAR: Regular rate and rhythm. ABDOMEN: Obese. EXTREMITIES: Had no edema. Dorsalis pedis pulse 1+ [place] [address] CONSULTATION Name: INEZ SMITH [place] Room: [address]#: [id number] Admission: 01/20/19 Attend Phys: Zafar Bond Discharge: Date of : 54 Report #: [id number] SKIN: Cool and dry. NEUROLOGIC: Nonfocal. RADIOLOGICAL DATA: Her ECG showed a sinus rhythm, evidence of previous inferior infarction, but no ST or T-wave change. Her workup so far, she had CT scan of the abdomen that showed pleural effusion, some ascites, and umbilical hernia. Chest x-ray showed cardiomegaly, mild interstitial infiltrates were noted. CT scan of the chest using a PE protocol; no pulmonary embolus, small effusions, some atelectasis. LABORATORY DATA: Revealed the following, sodium 137, creatinine 1.2. Liver function studies were normal. Troponin elevated at 0.9. Her white blood cell count 13.1, hemoglobin 10. IMPRESSION AND RECOMMENDATIONS: 1. Non-myocardial infarction related elevation of troponin. The patient had a heart catheterization 7 months ago that showed no restenosis of the stent. I would not recommend cardiac catheterization or stress testing at this time. I would continue aspirin. 2. Gallstones. I would hold off surgery at this time. 3. Hypertension. The patient is on a beta elijah and BEN inhibitor. 4. Hyperlipidemia. The patient is on a statin drug. 5. Obesity. 6. Moderate carotid stenosis. Doppler study this year showed 50% to 69% stenosis. <ELECTRONICALLY SIGNED> By: Nick Starr MD, [facility] 01/22/19 1621 0920 [id number] Starr MD, FACC /nt
[2019-01-22 20:00] VITALS: BP 107/47
[2019-01-23] VITALS: BP 136/88
[2019-01-23 02:06] LABS: HEPATITIS B SURFACE AG Negative (Negative)
[2019-01-23 04:00] VITALS: BP 140/80
--- NOTE | 2019-01-23 07:59 | NUR ---
[facility] PATIENT CARE AT 1900. ASSESSMENT COMPLETED CHARTED. PATIENT IS NSR ON THE MONITOR. PT HAD BRADYCARDIA, C/O DIZZINESS, PHYSICIAN NOTIFIED. NEW ORDERS RECEIVED AND FOLLOWED. HOURLY ROUNDING IN PLACE FOR PATIENT SAFETY. CLWR.
[2019-01-23 11:48] VITALS: BP 135/77
[2019-01-23 16:00] VITALS: BP 116/68
--- NOTE | 2019-01-23 18:30 | NUR ---
ASSUMED PT CARE AT 0700, VSS, REMAINS ON O2 AT 3-4LPM VIA NC, FUNCTIONAL ANALYST TRACING SINUS RHYTHM, UP TO BEDSIDE COMMODE AND CHAIR THROUGH OUT DAY WITH ASSIST X1, FULL ASSESSMENT CHARTED, HOURLY ROUNDING COMPLETED.
[2019-01-23 19:50] VITALS: BP 130/72
[2019-01-24] VITALS: BP 121/65
[2019-01-24 04:00] VITALS: BP 121/61
--- NOTE | 2019-01-24 05:12 | NUR ---
PT CARE ASSUMED AT 1930. SAT MAINTAINED IN O2. SOB WITH EXERTION. CALL LIGHT WITHIN REACH AND BED IN LOW POSITION. ALERT AND ORIENTED X4. DENIES NAUSEA. HOURLY ROUNDING DONE FOR PT SAFETY.
[2019-01-24 05:18] LABS: HEMOGLOBIN 9.5 gm/dL (12.0-15.0); MCH 31.1 pg (26.0-34.0); MCHC 33.9 g/dL (28.0-37.0); MCV 91.6 fL (80.0-100.0); MPV 8.3 fl. (7.2-11.1); RBC 3.05 mil/uL (4.20-5.00); RDW-CV 14.2 % (10.5-14.5); WBC 7.2 thou/uL (4.0-11.0)
[2019-01-24 05:39] LABS: ALBUMIN 2.3 g/dL (3.4-5.0); CALCIUM 8.7 mg/dL (8.5-10.1); POTASSIUM 3.3 mmol/L (3.5-5.1); TOTAL BILIRUBIN 0.7 mg/dL (<0.1-1.0); TOTAL PROTEIN 5.5 g/dL (6.4-8.2)
[2019-01-24 12:04] VITALS: BP 125/79
[2019-01-24 16:26] VITALS: BP 123/70
--- NOTE | 2019-01-24 18:17 | NUR ---
ASSUMED PT CARE AT 0700, PT A&O X4, VSS, REMAINS ON O2 AT 2LPM VIA NC, UP WITH ASSIST IN HALLWAY. WELD ENGINEER TRACING SINUS RHYTHM, PT DID HAVE SEVERAL LARGE BOWEL MOVEMENTS THIS SHIFT, HOURLY ROUNDING COMPLETED.
[2019-01-24 19:40] VITALS: BP 120/68
[2019-01-25] VITALS: BP 114/68
[2019-01-25 04:00] VITALS: BP 137/79
[2019-01-25 05:52] LABS: CALCIUM 8.7 mg/dL (8.5-10.1); CREATININE 1.1 mg/dL (0.6-1.3); MAGNESIUM 2.2 mg/dL (1.8-2.4); POTASSIUM 3.3 mmol/L (3.5-5.1)
--- NOTE | 2019-01-25 05:55 | NUR ---
PT CARE ASSUMED AT 1930. SAT MAINTAINED IN 02. ALERT AND ORIENTED X4. DENIES NAUSEA. SOB WITH EXERTION. CALL LIGHT WITHIN REACH AND BED IN LOW POSITION. HOURLY ROUNDING DONE FOR PT SAFETY.
[2019-01-25 11:33] VITALS: BP 118/67
--- NOTE | 2019-01-25 14:09 | NUR ---
Spoke with , anticipate dc within the next 1-2 days. Spoke with ID, Pt will not need IVABX at dc. Ex ox to be completed. Following.
[2019-01-25 16:06] VITALS: BP 126/63
--- NOTE | 2019-01-25 19:28 | NUR ---
ASSUMED PT CARE AT 0700, PT A&O X4, VSS, REMAINS ON 2LPM, UP IN HALLWAY WITH STANDBY AND WALKER, LS DIMINISHED BUT SOUND PROGRESSIVELY BETTER THIS SHIFT, FULL ASSESSMENT CHARTED. PT TO POSSIBLE DC TOMORROW, HOURLY ROUNDING COMPLETED.
[2019-01-25 20:00] VITALS: BP 127/72
--- NOTE | 2019-01-25 22:30 | NUR ---
REPORT RECEIVED FROM SILVER MINER AND PT ARRIVED TO ROOM 311. PT ALERT/ORIENTED X4. PT DENIES PAIN/NAUSEA. PT WITH BOWEL SOUNDS IN ALL 4 QUADS, LUNG SOUND DIMINISHED AND 1+ EDEMA ON LOWER EXTREMITIES. PILLOW PROVIDED TO ELEVATE LEGS. PT DENIES NEEDS AT THIS TIME. PT ORIENTED TO ROOM/POLICIES AND CALL LIGHT WITHIN REACH. WILL CONTINUE TO MONITOR.
[2019-01-26 00:51] VITALS: BP 134/77
--- NOTE | 2019-01-26 01:55 | NUR ---
PT CARE ASSUMED AT 1930. SAT MAINTAINED IN 02. ALERT AND ORIENTED X4. CALL LIGHT WITHIN REACH AND BED IN LOW POSITION. SOB WITH EXERTION. DENIES PAIN. HOURLY ROUNDING DONE FOR PT SAFETY. TRANSFERRED TO MED SURG VIA WHEELCHAIR WITH THE TECH AT 2230.
[2019-01-26 04:10] LABS: ABSOLUTE LYMPHOCYTES 0.9 thou/uL (0.8-5.3); ABSOLUTE MONOCYTES 0.4 thou/uL (0.0-1.2); ABSOLUTE NEUTROPHILS 3.8 thou/uL (1.6-8.1); BASOPHILS 0.1 %; EOSINOPHILS 0.1 %; HEMATOCRIT 28.9 % (37.0-47.0); HEMOGLOBIN 10.1 gm/dL (12.0-15.0); LYMPHOCYTES 17.9 %; MCH 32.1 pg (26.0-34.0); MCHC 34.9 g/dL (28.0-37.0); MONOCYTES 8.7 %; MPV 7.4 fl. (7.2-11.1); NUCLEATED RBCS 0 /100WBC; PLATELET COUNT* 161 thou/uL (150-400); POLYS 73.2 %; RBC 3.14 mil/uL (4.20-5.00); WBC 5.2 thou/uL (4.0-11.0)
[2019-01-26 04:34] LABS: ALBUMIN 2.6 g/dL (3.4-5.0); CALCIUM 8.7 mg/dL (8.5-10.1); CREATININE 0.9 mg/dL (0.6-1.3); TOTAL BILIRUBIN 0.5 mg/dL (<0.1-1.0); TOTAL PROTEIN 5.9 g/dL (6.4-8.2)
[2019-01-26 04:37] LABS: POTASSIUM 4.3 mmol/L (3.5-5.1)
--- NOTE | 2019-01-26 04:45 | NUR ---
PATIENT TRANSFERRED FROM [facility] AT APPROX 2200. PT ALERT/ORIENTED X4, PLEASANT. PT SLEPT WELL DURING THIS SHIFT. PT USES CALL LIGHT APPROPRIATELY FOR ASSISTANCE TO BATHROOM. PT UP WITH CLOSE STANDBY AND USE OF WALKER. PT WITH ONE EPISODE OF INCONTINENCE. PT VOIDS YELLOW URINE. O2 @ 3 LITERS PER NC. PT DENIES PAIN/NAUSEA. PT IS ANXIOUS TO GO HOME TODAY. FREQUENTLY USED ITEMS AND CALL LIGHT WITHIN REACH. SIDERAILS UPX4 PER PT REQUEST AND BED ALARM ON. WILL CONTINUE TO MONITOR.
[2019-01-26 08:03] VITALS: BP 134/83
[2019-01-26] MEDS ORDERED: AUGMENTIN 875-1 EACH PO (11:48)
[2019-01-26] MEDS ORDERED: VENTOLIN HFA 1818 GM INH (11:54)
[2019-01-26] MEDS ORDERED: TESSALON PERLE100 M1 PO (11:58)
--- NOTE | 2019-01-26 14:18 | NUR ---
PT GIVEN DC INSTRUCTIONS AND VERBALIZES UNDERSTANDING. THREE SCRIPTS GIVEN. PT HAS FOLLOW UP SCHEDULED WITH CARDIOLOGY, GIVEN NEW CONTACT INFORMATION FOR PCP, AND INSTRUCTED TO F/U WITH ID. PT'S DAUGHTER HERE AT THIS TIME TO TRANSPORT HOME. NO OTHER CONCERNS AT THIS TIME.
== END 2019-01-26 14:40 | disposition home or self-care (01) | DRG 177 ==
LOC: M.ERS 08:37 → M.ORTHSURG 12:27 → M.TBA-ER 12:27 → M.2W 12:27 → M.ORTHSURG 13:28 → M.2W 17:08 → M.3W 01-25 22:32
PROVIDERS: Emergency Medicine Emergency Medical Services; Family Medicine; Internal Medicine; Surgery; ADMIT Internal Medicine
DX: J15.6 Pneumonia due to other Gram-negative bacteria (principal); J96.01 Acute respiratory failure with hypoxia; I50.31 Acute diastolic (congestive) heart failure; I21.A1 Myocardial infarction type 2; K80.00 Calculus of gallbladder with acute cholecystitis without obstruction; R18.8 Other ascites; Z96.653 Presence of artificial knee joint, bilateral; Z96.642 Presence of left artificial hip joint; E78.00 Pure hypercholesterolemia, unspecified; G62.9 Polyneuropathy, unspecified; I25.10 Atherosclerotic heart disease of native coronary artery without angina pectoris; I11.0 Hypertensive heart disease with heart failure; E78.5 Hyperlipidemia, unspecified; I65.29 Occlusion and stenosis of unspecified carotid artery; E66.01 Morbid (severe) obesity due to excess calories; G43.909 Migraine, unspecified, not intractable, without status migrainosus; K76.0 Fatty (change of) liver, not elsewhere classified; I27.20 Pulmonary hypertension, unspecified; I73.9 Peripheral vascular disease, unspecified; K74.60 Unspecified cirrhosis of liver; I25.2 Old myocardial infarction; Z95.5 Presence of coronary angioplasty implant and graft; Z88.8 Allergy status to other drugs, medicaments and biological substances; Z68.38 Body mass index [BMI] 38.0-38.9, adult; Z23 Encounter for immunization